=== PATIENT | male | born 1980 | race Hispanic/Latino ===

== ENCOUNTER 2020-02-03 20:56 | Emergency (ER) | payer BC, OTHER, SELFPAY ==
[2020-02-03] MEDS ORDERED: ACETAMINOPHEN EXTRA STRENGTH 500 MG TABLET ONE (21:36)
[2020-02-03] MEDS ORDERED: ONDANSETRON HCL 4 MG/2 ML VIAL ONE (21:36)
[2020-02-03] MEDS ORDERED: FAMOTIDINE/PF 20 MG/2 ML VIAL IV ONE (21:37)
[2020-02-03] MEDS ORDERED: SODIUM CHLORIDE 0.9% 1000ML 1,000 ML IV ONE (21:38)
[2020-02-03 21:39] LABS: EOSINOPHILS % (AUTO) 2.3 % (0.0-8.0); HEMATOCRIT 44.4 % (42-54); LYMPHOCYTES % (AUTO) 21.3 % (21.0-51.0); MEAN CORPUSCULAR HEMOGLOBIN 28.2 pg (27.0-33.0); MEAN CORPUSCULAR HGB CONC 33.3 g/dL (32.0-36.0); MEAN CORPUSCULAR VOLUME 84.6 fL (79-99); NEUTROPHILS % (AUTO) 69.9 % (40.0-77.0); PLATELET COUNT (AUTO) 190 K/uL (130-400); RED BLOOD CELL COUNT(AUTO) 5.25 MIL/uL (4.50-6.20); WHITE BLOOD COUNT (AUTO) 5.5 K/uL (4.8-10.8)
[2020-02-03 21:51] LABS: INR 1.02 (0.85-1.15); PARTIAL THROMBOPLASTIN TIME 30.1 SEC (26.3-35.5)
[2020-02-03 21:55] LABS: CREATININE 1.5 mg/dL (0.5-1.5); POTASSIUM 4.2 mmol/L (3.5-5.1)
[2020-02-03 21:59] LABS: BILIRUBIN,TOTAL 0.5 mg/dL (0.2-1.0)
== END 2020-02-03 23:44 | disposition home or self-care (01) ==
LOC: EDH 20:56
DX: E86.0 Dehydration (principal); R19.7 Diarrhea, unspecified; R05 Cough; R50.9 Fever, unspecified; R10.13 Epigastric pain; Z20.828 Contact with and (suspected) exposure to other viral communicable diseases; E11.9 Type 2 diabetes mellitus without complications; I10 Essential (primary) hypertension; E78.00 Pure hypercholesterolemia, unspecified; Z90.49 Acquired absence of other specified parts of digestive tract
CPT/HCPCS: 36415; 71045; 80053; 82550; 83605; 83690; 84484; 85025; 85610; 85730; 96360; 96361; 99284; J2405; J3490; J7030

== ENCOUNTER 2020-02-04 19:18 | Inpatient (IN) | payer OTHER, SELFPAY ==
[~2020-02-04] VITALS: Ht 172.7 cm; Wt 105.7 kg
[2020-02-04] MEDS ORDERED: ALBUTEROL INHALER 90MCG/INH IH ONE (19:29)
[2020-02-04 20:28] LABS: BASOPHILS % (AUTO) 0.1 % (0.0-5.0); HEMATOCRIT 40.3 % (42-54); LYMPHOCYTES % (AUTO) 12.4 % (21.0-51.0); MEAN CORPUSCULAR HEMOGLOBIN 27.9 pg (27.0-33.0); MEAN CORPUSCULAR VOLUME 84.5 fL (79-99); MONOCYTES % (AUTO) 3.8 % (3.0-13.0); NEUTROPHILS % (AUTO) 83.3 % (40.0-77.0); PLATELET COUNT (AUTO) 161 K/uL (130-400); RED BLOOD CELL COUNT(AUTO) 4.77 MIL/uL (4.50-6.20); RED CELL DISTRIBUTION WIDTH 11.9 % (11.0-15.5); WHITE BLOOD COUNT (AUTO) 7.2 K/uL (4.8-10.8)
[2020-02-04] MEDS ORDERED: ONDANSETRON HCL 4 MG/2 ML VIAL ONE (20:46)
[2020-02-04] MEDS ORDERED: ACETAMINOPHEN EXTRA STRENGTH 500 MG TABLET ONE (20:46)
[2020-02-04 20:47] LABS: CREATININE 1.4 mg/dL (0.5-1.5); POTASSIUM 4.3 mmol/L (3.5-5.1)
[2020-02-04 20:52] LABS: ALBUMIN 3.3 g/dL (3.5-5.0); BILIRUBIN,TOTAL 0.6 mg/dL (0.2-1.0); TOTAL PROTEIN, SERUM 7.9 g/dL (6.0-8.3)
[2020-02-04] MEDS ORDERED: ONDANSETRON HCL 4 MG/2 ML VIAL IV PRN (22:00)
[2020-02-04] MEDS ORDERED: GLUCAGON 1MG KIT 1 MG ML IM PRN (22:00)
[2020-02-04] MEDS ORDERED: DIPHENHYDRAMINE HCL 25 MG CAPSULE PO PRN (22:00)
[2020-02-04] MEDS ORDERED: ERGOCALCIFEROL (VITAMIN D2) 50,000 UNIT CAPSULE PO ONE (22:00)
[2020-02-04] MEDS ORDERED: NITROGLYCERIN 0.4 MG SL TAB SL PRN (22:00)
[2020-02-04] MEDS ORDERED: ALBUTEROL INHALER 90MCG/INH IH PRN (22:00)
[2020-02-04] MEDS ORDERED: DEXTROSE 50%-WATER 50 ML DISP.SYRIN IV PRN (22:00)
[2020-02-04] MEDS ORDERED: ACETAMINOPHEN 325 MG TAB PO PRN ×2 (22:00)
[2020-02-04 22:11] LABS: ABG HCO3 18.4 mmol/L (21.0-28.0); ABG OXYGEN SATURATION 94.4 % (95.0-99.0); ABG PCO2 30 mmHg (35-48)
[2020-02-04 22:23] LABS: HEMOGLOBIN A1C 9.7 % (4.0-6.0)
[2020-02-05 01:39] LABS: CREATINE KINASE, TOTAL 262 U/L (21-232); LACTATE DEHYDROGENASE 219 U/L (81-234); MYOGLOBIN 123 ng/mL (10-92); TROPONIN I < 0.04 ng/mL (0.00-0.06)
[2020-02-05] MEDS ORDERED: CEFTRIAXONE SODIUM 1 GM ONE (06:43)
[2020-02-05] MEDS ORDERED: ACETAMINOPHEN 325 MG TAB ONE (06:59)
[2020-02-05] MEDS ORDERED: MAGNESIUM 2GM PREMIX 50ML 50 ML IV SCH (07:07)
[2020-02-05] MEDS ORDERED: ASCORBIC ACID 500 MG TAB ONE (07:15)
[2020-02-05] MEDS ORDERED: ERGOCALCIFEROL (VITAMIN D2) 50,000 UNIT CAPSULE ONE (07:15)
[2020-02-05] MEDS ORDERED: METHYLPREDNISOLONE SOD SUCC 40MG/ML 1ML ONE ×2 (07:15→21:18)
[2020-02-05] MEDS ORDERED: ZINC SULFATE 220 CAPSULE ONE (07:16)
[2020-02-05] MEDS ORDERED: ENOXAPARIN SODIUM 40 MG/0.4 ML SYRINGE SQ ONE (07:16)
[2020-02-05] MEDS ORDERED: FAMOTIDINE 20MG TAB 20 MG TAB ONE (07:16)
[2020-02-05] MEDS ORDERED: MAGNESIUM 2GM PREMIX 50ML 50 ML IV ONE (07:16)
[2020-02-05] MEDS ORDERED: INSULIN HUMULIN R 100 UNIT/ML 3ML SQ SCH (07:30)
[2020-02-05 08:37] LABS: BASOPHILS % (AUTO) 0.1 % (0.0-5.0); MEAN CORPUSCULAR HEMOGLOBIN 28.3 pg (27.0-33.0); MEAN CORPUSCULAR HGB CONC 33.3 g/dL (32.0-36.0); MONOCYTES % (AUTO) 3.6 % (3.0-13.0); NEUTROPHILS % (AUTO) 85.9 % (40.0-77.0); PLATELET COUNT (AUTO) 161 K/uL (130-400); RED BLOOD CELL COUNT(AUTO) 4.59 MIL/uL (4.50-6.20); RED CELL DISTRIBUTION WIDTH 12.2 % (11.0-15.5); WHITE BLOOD COUNT (AUTO) 8.4 K/uL (4.8-10.8)
[2020-02-05 08:59] LABS: BILIRUBIN,TOTAL 0.5 mg/dL (0.2-1.0); CREATININE 1.2 mg/dL (0.5-1.5); POTASSIUM 4.2 mmol/L (3.5-5.1); TOTAL PROTEIN, SERUM 7.6 g/dL (6.0-8.3)
[2020-02-05] MEDS ORDERED: METHYLPREDNISOLONE SOD SUCC 40MG/ML 1ML IVP SCH (09:00)
[2020-02-05] MEDS ORDERED: ACETAMINOPHEN EXTRA STRENGTH 500 MG TABLET ONE (18:51)
--- NOTE | 2020-02-05 19:03 | NUR ---
CM NOTE PATIENT CONTACTED BY RETA BELL RN FOR INITIAL CM ASSESSMENT- PHONE NUMBERS CONFIRMED AND UPDATED. PATIENT STATES INDEPENDENT, LIVES ALONE PER MD NOTES, PATIENT GOES TO [facility] IF MORE INFORMATION NEEDED AT TIME OF DC, CM TO FOLLOW UP Addendum: 02/05/20 at 1905 by ALEKSEY HENRIQUEZ RN CM Amended: Links added.
[2020-02-05] MEDS ORDERED: FAMOTIDINE/PF 20 MG/2 ML VIAL IV ONE (21:20)
[2020-02-05] MEDS ORDERED: INSULIN HUMULIN R 100 UNIT/ML 3ML ONE ×2 (21:20→22:18)
[2020-02-05] MEDS ORDERED: AZITHROMYCIN 500MG+NS 250ML 250 ML IV ONE (22:23)
[2020-02-06 05:05] LABS: BASOPHILS % (AUTO) 0.1 % (0.0-5.0); HEMATOCRIT 38.4 % (42-54); LYMPHOCYTES % (AUTO) 6.8 % (21.0-51.0); MEAN CORPUSCULAR HEMOGLOBIN 28.4 pg (27.0-33.0); MEAN CORPUSCULAR HGB CONC 33.9 g/dL (32.0-36.0); MONOCYTES % (AUTO) 2.5 % (3.0-13.0); PLATELET COUNT (AUTO) 181 K/uL (130-400); RED BLOOD CELL COUNT(AUTO) 4.57 MIL/uL (4.50-6.20); RED CELL DISTRIBUTION WIDTH 11.9 % (11.0-15.5); WHITE BLOOD COUNT (AUTO) 10.6 K/uL (4.8-10.8)
[2020-02-06 05:47] LABS: ALBUMIN 2.9 g/dL (3.5-5.0); BILIRUBIN,TOTAL 0.4 mg/dL (0.2-1.0); CREATININE 1.4 mg/dL (0.5-1.5); POTASSIUM 4.5 mmol/L (3.5-5.1); TOTAL PROTEIN, SERUM 7.1 g/dL (6.0-8.3)
[2020-02-06] MEDS ORDERED: METHYLPREDNISOLONE SOD SUCC 40MG/ML 1ML ONE ×4 (06:01→22:54)
[2020-02-06] MEDS ORDERED: CEFTRIAXONE SODIUM 1 GM ONE (06:01)
--- NOTE | 2020-02-06 07:30 | NUR ---
ASSUMED CARE OF PATIENT RECEIVED REPORT FROM Angel BRANHAM RN. PT STABLE, AAO X 3, FOLLOWS COMMANDS, NOTED TO GET SOB ON EXERTION WHILE TALKING AND MOVING AROUND IN THE BED. BBS DIMINISHED TO ALL LOBES. O2 @ 15L VIA NON-REBREATHER MASK, O2 SATS 90 %, WITH TACHYPNEA NOTED, ATTEMPTED TO REPOSITION PATIENT AND NOTED TO HAVE A CONTINUOUS COUGH, PT MEDICATED WITH COUGH MEDICATION, INSTRUCTED PATIENT ON RELAXATION TECHNIQUES, PT O2 SATS SLOWLY RECOVERED TO 92%. DENIES ANY PAIN. CALL LAGOS PLACED IN REACH. SIDE RAILS UP X 2. BED IN LOWEST POSITION.
[2020-02-06 08:06] LABS: CRP QUANTITATIVE 304.9 mg/L (0.00-9.0)
[2020-02-06 08:20] VITALS: BP 124/76
[2020-02-06] MEDS: METHYLPREDNISOLONE SOD SUCC 40MG/ML 1ML IVP SCH (09:30)
[2020-02-06] MEDS: ZINC SULFATE 220 CAPSULE PO SCH (09:30)
[2020-02-06] MEDS: ASCORBIC ACID 500 MG TAB PO SCH (09:30)
[2020-02-06] MEDS: FAMOTIDINE 20MG TAB 20 MG TAB PO SCH (09:30)
[2020-02-06] MEDS: ENOXAPARIN SODIUM 40 MG/0.4 ML SYRINGE SQ SCH (09:30)
[2020-02-06] MEDS: AZITHROMYCIN 500MG+NS 250ML 250 ML IV SCH (09:30)
[2020-02-06] MEDS: ALBUTEROL INHALER 90MCG/INH IH SCH ×3 (09:30→18:00)
--- NOTE | 2020-02-06 09:30 | NUR ---
PT CONTINUES WITH SHORTNESS OF BREATH ON EXERTION NOTED TO GET SOB ON EXERTION WHILE TALKING AND MOVING AROUND IN THE BED. O2 @ 15L VIA NON-REBREATHER MASK, O2 SATS 92%, WITH TACHYPNEA NOTED,DENIES ANY PAIN. ASSISTED PATIENT TO LAY PRONE AND NOTED PATIENTS O2 SATS 80, WITH UNCONTROLLABLE COUGH. ASSISTED PATIENT TO LAY ON BACK WITH HOB 45. O2 SATS SLOWLY RECOVERED TO 90. CALL LAGOS PLACED IN REACH. SIDE RAILS UP X 2. BED IN LOWEST POSITION.
[2020-02-06] MEDS ORDERED: ZINC SULFATE 220 CAPSULE ONE (09:47)
[2020-02-06] MEDS ORDERED: FAMOTIDINE 20MG TAB 20 MG TAB ONE (09:47)
[2020-02-06] MEDS ORDERED: ASCORBIC ACID 500 MG TAB ONE (09:47)
[2020-02-06] MEDS ORDERED: ENOXAPARIN SODIUM 40 MG/0.4 ML SYRINGE SQ ONE (09:47)
[2020-02-06] MEDS ORDERED: AZITHROMYCIN 500MG+NS 250ML 250 ML IV ONE ×2 (09:48→22:54)
[2020-02-06] MEDS ORDERED: GUAIFENESIN-DM 200/20 MG 10 ML PO PRN (10:45)
[2020-02-06] MEDS ORDERED: GUAIFENESIN-DM 200/20 MG 10 ML ONE ×4 (10:51→22:54)
[2020-02-06 11:00] VITALS: BP 126/77
--- NOTE | 2020-02-06 11:00 | NUR ---
PT CONTINUES WITH NOTED TACHYPNEA 40/MIN, PT SOB, O2 SATS 88-90% DR. ARRINGTON CALLED BACK. RECEIVED ORDERS.
[2020-02-06 11:06] LABS: ABG BASE EXCESS -6.6 mmol/L (-2.0-3.0); ABG HCO3 17.7 mmol/L (21.0-28.0); ABG OXYGEN SATURATION 90.9 % (95.0-99.0); ABG PCO2 32 mmHg (35-48)
--- NOTE | 2020-02-06 12:00 | NUR ---
HIGH FLOW O2 PLACED BY R/T, ABG'S DRAWN PT RESPIRATIONS 26/MIN. O2 SATS 98 %, PT NOTED TO BE RELAXED AND BREATHING EVEN AND UNLABORED. CALL LAGOS PLACED IN REACH. SIDE RAILS UP X 2. BED IN LOWEST POSITION.
[2020-02-06] MEDS ORDERED: INSULIN HUMULIN R 100 UNIT/ML 3ML ONE ×2 (15:10→18:54)
--- NOTE | 2020-02-06 16:00 | NUR ---
RESPIRATIONS EVEN AND UNLABORED 16/MIN, O2 SATS 97%, PATIENT LAYING PRONE AND TOLERATING WELL. O2 HIGH FLOW AT 40 LITERS. PT TOLERATING WELL.
[2020-02-06 16:20] VITALS: BP 124/63
--- NOTE | 2020-02-06 18:14 | NUR ---
INITIAL SW spoke to patient's father, Marlen Guerrero, [phone]. Another emergency contact is patient's mother, Ernestina Antonio, [phone]. Patient is but presently as per father. Patient presently lives with parents. He has no home services or DME. Patient was working in [place] but is unemployed due to COVID 19. He is able to complete ADL's independently and drives. PCP is Dr. Jaciel Monique at [facility] in [place]. Pharmacy is [facility]. DCP is home. Patient has no insurance or benefits. He is a [place] citizen and has worked. Patient's father educated on [employer] $4 medication program and Daz 3d $5 medication program. Patient is being assisted by [employer] for financial matters. Addendum: 02/06/20 at 1818 by CARMITA MCMAHON SS Amended: Links added.
--- NOTE | 2020-02-06 18:21 | NUR ---
EMERGENCY CONTACTS Marlen Guerrero (father) - [phone] Ernestina Antonio (mother) - [phone]
[2020-02-07] MEDS ORDERED: CEFTRIAXONE SODIUM 1 GM ONE ×2 (04:54→20:59)
[2020-02-07 07:20] LABS: BASOPHILS % (AUTO) 0.1 % (0.0-5.0); HEMATOCRIT 35.5 % (42-54); LYMPHOCYTES % (AUTO) 5.3 % (21.0-51.0); MEAN CORPUSCULAR HEMOGLOBIN 28.5 pg (27.0-33.0); MEAN CORPUSCULAR HGB CONC 33.8 g/dL (32.0-36.0); MEAN CORPUSCULAR VOLUME 84.3 fL (79-99); MONOCYTES % (AUTO) 3.9 % (3.0-13.0); NEUTROPHILS % (AUTO) 89.1 % (40.0-77.0); PLATELET COUNT (AUTO) 244 K/uL (130-400); RED BLOOD CELL COUNT(AUTO) 4.21 MIL/uL (4.50-6.20); RED CELL DISTRIBUTION WIDTH 11.9 % (11.0-15.5); WHITE BLOOD COUNT (AUTO) 12.9 K/uL (4.8-10.8)
[2020-02-07 07:35] LABS: ALBUMIN 2.5 g/dL (3.5-5.0); BILIRUBIN,TOTAL 0.3 mg/dL (0.2-1.0); CREATININE 1.3 mg/dL (0.5-1.5); POTASSIUM 4.6 mmol/L (3.5-5.1); TOTAL PROTEIN, SERUM 7.3 g/dL (6.0-8.3)
[2020-02-07] MEDS ORDERED: METHYLPREDNISOLONE SOD SUCC 40MG/ML 1ML ONE ×2 (08:33→20:58)
[2020-02-07] MEDS ORDERED: ASCORBIC ACID 500 MG TAB ONE (08:33)
[2020-02-07] MEDS ORDERED: ZINC SULFATE 220 CAPSULE ONE (08:34)
[2020-02-07] MEDS ORDERED: AZITHROMYCIN 500MG+NS 250ML 250 ML IV ONE (08:34)
[2020-02-07] MEDS ORDERED: ENOXAPARIN SODIUM 40 MG/0.4 ML SYRINGE SQ ONE (08:34)
[2020-02-07] MEDS ORDERED: FAMOTIDINE 20MG TAB 20 MG TAB ONE ×2 (08:34→20:59)
[2020-02-07] MEDS: ENOXAPARIN SODIUM 40 MG/0.4 ML SYRINGE SQ SCH (09:00)
[2020-02-07] MEDS: ZINC SULFATE 220 CAPSULE PO SCH (09:00)
[2020-02-07] MEDS ORDERED: GUAIFENESIN SUGAR-FREE 100 MG/5 ML UDCUP ONE (09:24)
[2020-02-07 09:39] LABS: CRP QUANTITATIVE 288.9 mg/L (0.00-9.0)
[2020-02-07] MEDS ORDERED: FUROSEMIDE 10 MG/ML 2ML VIAL ONE (17:22)
--- NOTE | 2020-02-07 17:27 | NUR ---
LETTY JOEL FOR [facility] ROUND AND EVALUATED THE PT. JAMAR EDUCATED AND RECOMMENDED TREATMENT WITH PLASMA AND REMDESIVIR NEW ANTIVIRAL MED, PT VERBALIZED UNDERSTAND AND AGREE.
[2020-02-07] MEDS ORDERED: GUAIFENESIN-DM 200/20 MG 10 ML ONE (20:58)
[2020-02-08] MEDS ORDERED: FUROSEMIDE 10 MG/ML 2ML VIAL ONE ×2 (05:14→13:44)
[2020-02-08 07:48] LABS: CREATININE 1.2 mg/dL (0.5-1.5); MAGNESIUM 2.6 mg/dL (1.80-2.40); POTASSIUM 4.2 mmol/L (3.5-5.1)
[2020-02-08] MEDS: ZINC SULFATE 220 CAPSULE PO SCH (09:00)
[2020-02-08] MEDS: ENOXAPARIN SODIUM 40 MG/0.4 ML SYRINGE SQ SCH (09:00)
[2020-02-08] MEDS: ASCORBIC ACID 500 MG TAB PO SCH (09:00)
[2020-02-08] MEDS: AZITHROMYCIN 500MG+NS 250ML 250 ML IV SCH (09:00)
[2020-02-08] MEDS ORDERED: ALBUTEROL INHALER 90MCG/INH IH ONE (09:13)
[2020-02-08] MEDS ORDERED: ENOXAPARIN SODIUM 40 MG/0.4 ML SYRINGE SQ ONE (09:14)
[2020-02-08] MEDS ORDERED: ZINC SULFATE 220 CAPSULE ONE (09:16)
[2020-02-08] MEDS ORDERED: ASCORBIC ACID 500 MG TAB ONE (09:17)
[2020-02-08 10:06] LABS: BASOPHILS % (AUTO) 0.2 % (0.0-5.0); HEMATOCRIT 37.8 % (42-54); LYMPHOCYTES % (AUTO) 4.8 % (21.0-51.0); MEAN CORPUSCULAR HGB CONC 32.5 g/dL (32.0-36.0); MEAN CORPUSCULAR VOLUME 85.9 fL (79-99); MONOCYTES % (AUTO) 3.8 % (3.0-13.0); NEUTROPHILS % (AUTO) 90.1 % (40.0-77.0); PLATELET COUNT (AUTO) 296 K/uL (130-400); RED CELL DISTRIBUTION WIDTH 12.2 % (11.0-15.5); WHITE BLOOD COUNT (AUTO) 12.3 K/uL (4.8-10.8)
[2020-02-08] MEDS ORDERED: FAMOTIDINE 20MG TAB 20 MG TAB ONE ×2 (10:20→22:08)
[2020-02-08] MEDS ORDERED: AZITHROMYCIN 500MG+NS 250ML 250 ML IV ONE (10:20)
[2020-02-08] MEDS ORDERED: INSULIN HUMULIN R 100 UNIT/ML 3ML ONE ×3 (13:17→22:09)
[2020-02-08] MEDS ORDERED: METHYLPREDNISOLONE SOD SUCC 40MG/ML 1ML ONE ×2 (13:44→22:07)
[2020-02-08] MEDS ORDERED: HYDRALAZINE HCL 20 MG/ML VIAL IV PRN (14:30)
[2020-02-08] MEDS ORDERED: IOHEXOL-350 75 ML VIAL IV ONE (14:55)
[2020-02-08] MEDS: FUROSEMIDE 10 MG/ML 2ML VIAL IV SCH (16:30)
[2020-02-08] MEDS: INSULIN HUMULIN R 100 UNIT/ML 3ML SQ SCH ×2 (16:30→21:00)
[2020-02-08] MEDS: INSULIN GLARGINE 100 UNITS/ML 10 ML VIAL SQ SCH (21:00)
[2020-02-08] MEDS: METHYLPREDNISOLONE SOD SUCC 40MG/ML 1ML IVP SCH (21:00)
[2020-02-08] MEDS: FAMOTIDINE 20MG TAB 20 MG TAB PO SCH (21:00)
[2020-02-08] MEDS: CEFTRIAXONE SODIUM 1 GM IV SCH (22:00)
[2020-02-08] MEDS: ALBUTEROL INHALER 90MCG/INH IH SCH (22:00)
[2020-02-08] MEDS ORDERED: GUAIFENESIN-DM 200/20 MG 10 ML ONE (22:07)
[2020-02-08] MEDS ORDERED: CEFTRIAXONE SODIUM 1 GM ONE (22:08)
[2020-02-08] MEDS ORDERED: SODIUM CHLORIDE 0.9% 50 ML IV ONE (22:12)
--- NOTE | 2020-02-08 23:50 | NUR ---
ER Arrived from Er,pt on 100% 02 via nonrebreather mask,and high flow 02 70liters at 100%.. Addendum: 02/08/20 at 2354 by KINGS WELLER RN RN Amended: Links added. Addendum: 02/09/20 at 0025 by KINGS WELLER RN RN Pt appears sob during transport.
[2020-02-08 23:55] VITALS: BP 149/98
--- NOTE | 2020-02-09 01:39 | NUR ---
PRONE Pt lying prone on his own,respirations even and unlabored.ailyn well.
[2020-02-09] MEDS: ALBUTEROL INHALER 90MCG/INH IH SCH ×6 (02:24→23:25)
[2020-02-09] MEDS: FUROSEMIDE 10 MG/ML 2ML VIAL IV SCH ×2 (03:07→14:24)
[2020-02-09 03:47] VITALS: BP 125/65
[2020-02-09 05:01] LABS: BASOPHILS % (AUTO) 0.3 % (0.0-5.0); HEMATOCRIT 39.9 % (42-54); MEAN CORPUSCULAR HEMOGLOBIN 27.8 pg (27.0-33.0); MEAN CORPUSCULAR HGB CONC 32.6 g/dL (32.0-36.0); MEAN CORPUSCULAR VOLUME 85.4 fL (79-99); MONOCYTES % (AUTO) 4.4 % (3.0-13.0); NEUTROPHILS % (AUTO) 86.3 % (40.0-77.0); PLATELET COUNT (AUTO) 328 K/uL (130-400); RED BLOOD CELL COUNT(AUTO) 4.67 MIL/uL (4.50-6.20); RED CELL DISTRIBUTION WIDTH 12.2 % (11.0-15.5); WHITE BLOOD COUNT (AUTO) 10.5 K/uL (4.8-10.8)
[2020-02-09 05:19] LABS: CREATININE 1.2 mg/dL (0.5-1.5); POTASSIUM 4.1 mmol/L (3.5-5.1)
[2020-02-09 05:29] LABS: CRP QUANTITATIVE 193.2 mg/L (0.00-9.0)
[2020-02-09] MEDS: INSULIN HUMULIN R 100 UNIT/ML 3ML SQ SCH ×4 (06:34→22:22)
[2020-02-09 08:39] VITALS: BP 125/68
[2020-02-09] MEDS: AZITHROMYCIN 500MG+NS 250ML 250 ML IV SCH (09:39)
[2020-02-09] MEDS: METHYLPREDNISOLONE SOD SUCC 40MG/ML 1ML IVP SCH ×2 (09:39→20:48)
[2020-02-09] MEDS: ZINC SULFATE 220 CAPSULE PO SCH (09:40)
[2020-02-09] MEDS: ASCORBIC ACID 500 MG TAB PO SCH (09:40)
[2020-02-09] MEDS: FAMOTIDINE 20MG TAB 20 MG TAB PO SCH ×2 (09:40→20:49)
[2020-02-09] MEDS: ENOXAPARIN SODIUM 40 MG/0.4 ML SYRINGE SQ SCH (09:41)
[2020-02-09 11:32] VITALS: BP 145/76
--- NOTE | 2020-02-09 16:20 | NUR ---
DR. Hawthorne AWARE OF PT 02 SATS 90% ON 100% HIGH FLOW CALL PULMO IF PT DESATS BELOW 89%.
[2020-02-09 17:07] VITALS: BP 135/75
[2020-02-09 19:30] VITALS: BP 135/75
--- NOTE | 2020-02-09 19:30 | NUR ---
RECEIVED PATIENT IN BED, PRONE POSITION. PT IS AAOX4, NO ACUTE DISTRESS NOTED. PATIENT WITH HIGH FLOW AND NRB MASK WITH SATURATION AT 92%. POC DISCUSSED WITH PATIENT. INSTRUCTED TO CALL FOR ASSISTANCE IF NEEDED. PATIENT VOICED UNDERSTANDING. TELE WITH SINUS 85.
[2020-02-09] MEDS: CEFTRIAXONE SODIUM 1 GM IV SCH (20:49)
[2020-02-09] MEDS: INSULIN GLARGINE 100 UNITS/ML 10 ML VIAL SQ SCH (22:22)
[2020-02-09 23:54] VITALS: BP 135/86
[2020-02-10] MEDS: FUROSEMIDE 10 MG/ML 2ML VIAL IV SCH ×2 (01:57→17:31)
[2020-02-10 04:00] VITALS: BP 111/58
[2020-02-10] MEDS: ALBUTEROL INHALER 90MCG/INH IH SCH ×6 (04:03→21:32)
[2020-02-10] MEDS: INSULIN HUMULIN R 100 UNIT/ML 3ML SQ SCH ×4 (07:03→21:19)
[2020-02-10 07:51] LABS: BASOPHILS % (AUTO) 0.2 % (0.0-5.0); HEMATOCRIT 39.1 % (42-54); LYMPHOCYTES % (AUTO) 12.2 % (21.0-51.0); MEAN CORPUSCULAR HEMOGLOBIN 27.9 pg (27.0-33.0); MEAN CORPUSCULAR HGB CONC 32.5 g/dL (32.0-36.0); MEAN CORPUSCULAR VOLUME 85.7 fL (79-99); MONOCYTES % (AUTO) 4.3 % (3.0-13.0); NEUTROPHILS % (AUTO) 80.3 % (40.0-77.0); PLATELET COUNT (AUTO) 372 K/uL (130-400); RED BLOOD CELL COUNT(AUTO) 4.56 MIL/uL (4.50-6.20); RED CELL DISTRIBUTION WIDTH 11.9 % (11.0-15.5); WHITE BLOOD COUNT (AUTO) 8.7 K/uL (4.8-10.8)
[2020-02-10 08:12] LABS: ALBUMIN 2.2 g/dL (3.5-5.0); BILIRUBIN,TOTAL 0.3 mg/dL (0.2-1.0); CREATININE 1.1 mg/dL (0.5-1.5); CRP QUANTITATIVE 88.7 mg/L (0.00-9.0); POTASSIUM 3.6 mmol/L (3.5-5.1); TOTAL PROTEIN, SERUM 7.2 g/dL (6.0-8.3)
[2020-02-10 09:10] VITALS: BP 130/72
[2020-02-10] MEDS: AZITHROMYCIN 500MG+NS 250ML 250 ML IV SCH (09:26)
[2020-02-10] MEDS: ASCORBIC ACID 500 MG TAB PO SCH (09:27)
[2020-02-10] MEDS: METHYLPREDNISOLONE SOD SUCC 40MG/ML 1ML IVP SCH ×2 (09:27→21:13)
[2020-02-10] MEDS: ZINC SULFATE 220 CAPSULE PO SCH (09:27)
[2020-02-10] MEDS: FAMOTIDINE 20MG TAB 20 MG TAB PO SCH ×2 (09:27→21:15)
[2020-02-10] MEDS: ENOXAPARIN SODIUM 40 MG/0.4 ML SYRINGE SQ SCH (09:29)
[2020-02-10 12:03] VITALS: BP 131/74
--- NOTE | 2020-02-10 13:20 | NUR ---
PATIENT GET SOB Addendum: 02/10/20 at 1331 by KRUNAL ANNA RN RN Amended: Links added.
[2020-02-10 16:42] VITALS: BP 126/73
[2020-02-10 20:00] VITALS: BP 116/59
[2020-02-10] MEDS: CEFTRIAXONE SODIUM 1 GM IV SCH (21:14)
[2020-02-10] MEDS: INSULIN GLARGINE 100 UNITS/ML 10 ML VIAL SQ SCH (21:31)
[2020-02-11] VITALS (7 sets, daily range): BP systolic 102–154; BP diastolic 65–89
[2020-02-11] MEDS: ALBUTEROL INHALER 90MCG/INH IH SCH ×6 (01:56→18:00)
[2020-02-11] MEDS: FUROSEMIDE 10 MG/ML 2ML VIAL IV SCH ×2 (04:47→17:22)
[2020-02-11] MEDS: INSULIN HUMULIN R 100 UNIT/ML 3ML SQ SCH ×4 (06:10→22:17)
[2020-02-11 06:45] LABS: BASOPHILS % (AUTO) 0.2 % (0.0-5.0); EOSINOPHILS % (AUTO) 0.1 % (0.0-8.0); HEMATOCRIT 39.3 % (42-54); LYMPHOCYTES % (AUTO) 9.5 % (21.0-51.0); MEAN CORPUSCULAR HEMOGLOBIN 28.2 pg (27.0-33.0); MEAN CORPUSCULAR HGB CONC 33.3 g/dL (32.0-36.0); MEAN CORPUSCULAR VOLUME 84.7 fL (79-99); MONOCYTES % (AUTO) 3.8 % (3.0-13.0); NEUTROPHILS % (AUTO) 83.8 % (40.0-77.0); PLATELET COUNT (AUTO) 380 K/uL (130-400); RED BLOOD CELL COUNT(AUTO) 4.64 MIL/uL (4.50-6.20); RED CELL DISTRIBUTION WIDTH 11.8 % (11.0-15.5); WHITE BLOOD COUNT (AUTO) 8.1 K/uL (4.8-10.8)
[2020-02-11 07:29] LABS: ALBUMIN 2.2 g/dL (3.5-5.0); BILIRUBIN,TOTAL 0.4 mg/dL (0.2-1.0); CRP QUANTITATIVE 136.7 mg/L (0.00-9.0); POTASSIUM 3.8 mmol/L (3.5-5.1); TOTAL PROTEIN, SERUM 7.4 g/dL (6.0-8.3)
[2020-02-11] MEDS ORDERED: PHARMACY COMMUNICATION MISC SCH (08:45)
[2020-02-11] MEDS ORDERED: IVERMECTIN 3 MG TAB PO SCH ×2 (08:45→09:30)
[2020-02-11] MEDS: METHYLPREDNISOLONE SOD SUCC 40MG/ML 1ML IVP SCH ×4 (09:00→22:13)
[2020-02-11] MEDS ORDERED: ENOXAPARIN SODIUM 0.5 MG/KG EACH SQ SCH (09:00)
[2020-02-11] MEDS: FAMOTIDINE 20MG TAB 20 MG TAB PO SCH ×2 (09:39→22:13)
[2020-02-11] MEDS: AZITHROMYCIN 500MG+NS 250ML 250 ML IV SCH (09:39)
[2020-02-11] MEDS: ASCORBIC ACID 500 MG TAB PO SCH (09:40)
[2020-02-11] MEDS: ENOXAPARIN SODIUM 60 MG/0.6 ML SQ SCH ×2 (09:40→22:16)
[2020-02-11] MEDS: ZINC SULFATE 220 CAPSULE PO SCH (09:40)
[2020-02-11] MEDS ORDERED: PHARMACY COMMUNICATION**REMDESIVIR ORDER MISC SCH (15:30)
--- NOTE | 2020-02-11 16:09 | NUR ---
Nutrition Note: RD screen LOS x7 days. Pt admitted with severe sepsis, pneumonia, +Covid. Pt on a GHH/75 gm diet eating 25-75 % of meals and had been able to eat well. Per nurse, patient status has changed and is on Bipap unable to remove mask to eat because he desaturates. Day one of unable to eat. Pt with uncontrolled DM A1C 9.7. LBM 02/09 Monitor patient intake and hydration status. Add no concentrated sweets to current diet. If patient is unable to eat via po, consider enteral nutrition for energy intake and hydration. Initiate TF of vital AF at 10ml/hr and consult RD for detailed recommendations. Add Vit D 1000 IU/day. F/U 1-3 days. Addendum: 02/11/20 at [address] Amended: Links added.
[2020-02-11] MEDS ORDERED: SODIUM CHLORIDE 0.9% 250 ML IV ONE (16:12)
--- NOTE | 2020-02-11 16:40 | NUR ---
REPORT RECEIVED FROM NURSE KELLI AND PT NOW TO ROOM 407. RESP THERAPY HERE AND PLACED PT. ON BIPAP+PENDING TO RECEIVE 1 UNIT OF CONVALESCENT PLASMA. AAO, WITH SATS AT100&
--- NOTE | 2020-02-11 18:01 | NUR ---
CONSENT SIGNED FOR TRANSFUSION OF 1 UNIT OF CONVALESCENT.
[2020-02-11] MEDS ORDERED: REMDESIVIR (EUA) 520 200 MG in SODIUM CHLORIDE 0.9% 250 ML IV SCH (20:00)
[2020-02-11] MEDS: CEFTRIAXONE SODIUM 1 GM IV SCH (22:13)
[2020-02-11] MEDS: INSULIN GLARGINE 100 UNITS/ML 10 ML VIAL SQ SCH (22:18)
--- NOTE | 2020-02-11 22:20 | NUR ---
PLASMA STILL HANGING, NOT COMPLETED. TRANSFUSION VITAL CHECK LIST ON BEDSIDE TABLE WITH ONLY PRE TRANSFUSION VITALS WRITTEN DOWN. BLOOD BANK CALLED BY [facility], WAS NOTIFIED TO SEND PLASMA BACK TO BLOOD BANK AND REQUEST A NEW BAG OF PLASMA. D/T NOT BEING COMPLETED WITHIN 4 HOURS. TIME ON SHEET WAS 1810.
[2020-02-12] VITALS (7 sets, daily range): BP systolic 107–141; BP diastolic 74–89
[2020-02-12] MEDS: ALBUTEROL INHALER 90MCG/INH IH SCH ×6 (02:00→22:00)
[2020-02-12] MEDS: FUROSEMIDE 10 MG/ML 2ML VIAL IV SCH ×2 (04:56→16:40)
--- NOTE | 2020-02-12 04:58 | NUR ---
COMPLETED PLASMA (1 BAG) NO ADVERSE REACTIONS. PT LAYING ON LEFT SIDE, DENIES PAIN OR DISTRESS. VITALS BP 121/84 HR 60 R 23 TEMP 97.5
[2020-02-12] MEDS: INSULIN HUMULIN R 100 UNIT/ML 3ML SQ SCH ×4 (06:13→22:15)
[2020-02-12 06:17] LABS: BASOPHILS % (AUTO) 0.1 % (0.0-5.0); EOSINOPHILS % (AUTO) 0.2 % (0.0-8.0); LYMPHOCYTES % (AUTO) 9.8 % (21.0-51.0); MEAN CORPUSCULAR HEMOGLOBIN 27.6 pg (27.0-33.0); MEAN CORPUSCULAR HGB CONC 32.8 g/dL (32.0-36.0); MEAN CORPUSCULAR VOLUME 84.2 fL (79-99); MONOCYTES % (AUTO) 4.5 % (3.0-13.0); PLATELET COUNT (AUTO) 394 K/uL (130-400); RED BLOOD CELL COUNT(AUTO) 4.75 MIL/uL (4.50-6.20); RED CELL DISTRIBUTION WIDTH 11.7 % (11.0-15.5); WHITE BLOOD COUNT (AUTO) 9.7 K/uL (4.8-10.8)
[2020-02-12 06:48] LABS: ALBUMIN 2.4 g/dL (3.5-5.0); BILIRUBIN,TOTAL 0.4 mg/dL (0.2-1.0); POTASSIUM 3.9 mmol/L (3.5-5.1); TOTAL PROTEIN, SERUM 7.7 g/dL (6.0-8.3)
[2020-02-12 07:31] LABS: CRP QUANTITATIVE 191.9 mg/L (0.00-9.0)
[2020-02-12] MEDS: ASCORBIC ACID 500 MG TAB PO SCH (09:25)
[2020-02-12] MEDS: ZINC SULFATE 220 CAPSULE PO SCH (09:25)
[2020-02-12] MEDS: AZITHROMYCIN 500MG+NS 250ML 250 ML IV SCH (09:25)
[2020-02-12] MEDS: FAMOTIDINE 20MG TAB 20 MG TAB PO SCH ×2 (09:25→22:06)
[2020-02-12] MEDS: METHYLPREDNISOLONE SOD SUCC 40MG/ML 1ML IVP SCH ×3 (09:25→22:14)
[2020-02-12] MEDS: ENOXAPARIN SODIUM 60 MG/0.6 ML SQ SCH ×2 (09:26→22:09)
[2020-02-12] MEDS ORDERED: COMPOUND IV REFRIGERATED 1 EACH IVSOLN MISC PRN (12:15)
--- NOTE | 2020-02-12 18:09 | NUR ---
Critical results given to Dr. Gianluca Musa. no new orders received. pt laying in bed on bipap. no acute distress noted.
[2020-02-12] MEDS: CEFTRIAXONE SODIUM 1 GM IV SCH (22:05)
[2020-02-12] MEDS: ACETYLCYSTEINE 600 MG CAPSULE PO SCH (22:06)
[2020-02-12] MEDS: INSULIN GLARGINE 100 UNITS/ML 10 ML VIAL SQ SCH (22:07)
[2020-02-12] MEDS: REMDESIVIR (EUA) 520 100 MG in SODIUM CHLORIDE 0.9% 250 ML IV SCH (22:14)
[2020-02-13] MEDS: ALBUTEROL INHALER 90MCG/INH IH SCH ×6 (02:00→22:00)
[2020-02-13 03:59] VITALS: BP 150/84
[2020-02-13 04:44] LABS: BASOPHILS % (AUTO) 0.1 % (0.0-5.0); EOSINOPHILS % (AUTO) 0.1 % (0.0-8.0); HEMATOCRIT 39.7 % (42-54); LYMPHOCYTES % (AUTO) 7.6 % (21.0-51.0); MEAN CORPUSCULAR HEMOGLOBIN 28.1 pg (27.0-33.0); MEAN CORPUSCULAR HGB CONC 32.7 g/dL (32.0-36.0); MEAN CORPUSCULAR VOLUME 85.9 fL (79-99); NEUTROPHILS % (AUTO) 85.5 % (40.0-77.0); PLATELET COUNT (AUTO) 394 K/uL (130-400); RED BLOOD CELL COUNT(AUTO) 4.62 MIL/uL (4.50-6.20); RED CELL DISTRIBUTION WIDTH 11.9 % (11.0-15.5); WHITE BLOOD COUNT (AUTO) 11.2 K/uL (4.8-10.8)
[2020-02-13 04:46] LABS: ALANINE AMINOTRANSFERASE 33 U/L (12-78); ALBUMIN 2.2 g/dL (3.5-5.0); ASPARTATE AMINOTRANSFERASE 15 U/L (10-37); BILIRUBIN,TOTAL 0.2 mg/dL (0.2-1.0); CARBON DIOXIDE 31 mmol/L (21-32); CHLORIDE 99 mmol/L (101-111); GLOMERULAR FILTR. RATE CALC 88 mL/min (>60); GLUCOSE,RANDOM 200 mg/dL (70-105); LACTATE DEHYDROGENASE 265 U/L (81-234); POTASSIUM 3.9 mmol/L (3.5-5.1); SODIUM SERUM 136 mmol/L (136-145); TOTAL PROTEIN, SERUM 7.3 g/dL (6.0-8.3); UREA NITROGEN, BLOOD 33 mg/dL (7-18)
[2020-02-13] MEDS: FUROSEMIDE 10 MG/ML 2ML VIAL IV SCH ×2 (06:13→16:28)
[2020-02-13] MEDS: INSULIN HUMULIN R 100 UNIT/ML 3ML SQ SCH ×4 (06:14→20:39)
[2020-02-13 07:45] VITALS: BP 116/71
[2020-02-13] MEDS: ZINC SULFATE 220 CAPSULE PO SCH (08:52)
[2020-02-13] MEDS: ACETYLCYSTEINE 600 MG CAPSULE PO SCH ×2 (08:52→20:21)
[2020-02-13] MEDS: AZITHROMYCIN 500MG+NS 250ML 250 ML IV SCH (08:52)
[2020-02-13] MEDS: METHYLPREDNISOLONE SOD SUCC 40MG/ML 1ML IVP SCH ×3 (08:52→20:21)
[2020-02-13] MEDS: ASCORBIC ACID 500 MG TAB PO SCH (08:52)
[2020-02-13] MEDS: FAMOTIDINE 20MG TAB 20 MG TAB PO SCH ×2 (08:52→20:21)
[2020-02-13] MEDS: ENOXAPARIN SODIUM 60 MG/0.6 ML SQ SCH ×2 (08:54→20:40)
[2020-02-13 11:35] VITALS: BP 171/87
[2020-02-13 16:08] VITALS: BP 113/74
--- NOTE | 2020-02-13 16:15 | NUR ---
FiO2 decreased to .90 Addendum: 02/13/20 at 1851 by LYNDON PARKER RT Amended: Links added.
[2020-02-13] MEDS: REMDESIVIR (EUA) 520 100 MG in SODIUM CHLORIDE 0.9% 250 ML IV SCH (20:21)
[2020-02-13] MEDS: CEFTRIAXONE SODIUM 1 GM IV SCH (20:21)
[2020-02-13 20:32] VITALS: BP 110/59
[2020-02-13] MEDS: INSULIN GLARGINE 100 UNITS/ML 10 ML VIAL SQ SCH (20:39)
[2020-02-13 21:15] LABS: INR 1.12 (0.85-1.15)
[2020-02-13 23:46] VITALS: BP 137/65
[2020-02-14 03:48] VITALS: BP 106/76
[2020-02-14] MEDS: ALBUTEROL INHALER 90MCG/INH IH SCH ×6 (03:56→20:06)
[2020-02-14 05:20] LABS: BASOPHILS % (AUTO) 0.1 % (0.0-5.0); EOSINOPHILS % (AUTO) 0.2 % (0.0-8.0); HEMATOCRIT 40.3 % (42-54); LYMPHOCYTES % (AUTO) 6.5 % (21.0-51.0); MEAN CORPUSCULAR HEMOGLOBIN 27.8 pg (27.0-33.0); MEAN CORPUSCULAR HGB CONC 32.3 g/dL (32.0-36.0); MEAN CORPUSCULAR VOLUME 86.3 fL (79-99); MONOCYTES % (AUTO) 5.1 % (3.0-13.0); NEUTROPHILS % (AUTO) 86.7 % (40.0-77.0); PLATELET COUNT (AUTO) 375 K/uL (130-400); RED BLOOD CELL COUNT(AUTO) 4.67 MIL/uL (4.50-6.20); RED CELL DISTRIBUTION WIDTH 11.9 % (11.0-15.5); WHITE BLOOD COUNT (AUTO) 11.5 K/uL (4.8-10.8)
[2020-02-14 05:40] LABS: ALANINE AMINOTRANSFERASE 25 U/L (12-78); ALBUMIN 2.2 g/dL (3.5-5.0); ASPARTATE AMINOTRANSFERASE 12 U/L (10-37); BILIRUBIN,TOTAL 0.3 mg/dL (0.2-1.0); CARBON DIOXIDE 30 mmol/L (21-32); CHLORIDE 100 mmol/L (101-111); CREATININE 0.9 mg/dL (0.5-1.5); GLOMERULAR FILTR. RATE CALC 99 mL/min (>60); GLUCOSE,RANDOM 177 mg/dL (70-105); LACTATE DEHYDROGENASE 291 U/L (81-234); SODIUM SERUM 137 mmol/L (136-145); UREA NITROGEN, BLOOD 31 mg/dL (7-18)
[2020-02-14] MEDS: FUROSEMIDE 10 MG/ML 2ML VIAL IV SCH ×2 (06:31→17:12)
[2020-02-14] MEDS: INSULIN HUMULIN R 100 UNIT/ML 3ML SQ SCH ×5 (06:32→20:06)
[2020-02-14 08:15] VITALS: BP 113/68
[2020-02-14] MEDS: ACETYLCYSTEINE 600 MG CAPSULE PO SCH ×2 (08:22→19:39)
[2020-02-14] MEDS: FAMOTIDINE 20MG TAB 20 MG TAB PO SCH ×2 (08:22→19:39)
[2020-02-14] MEDS: ZINC SULFATE 220 CAPSULE PO SCH (08:22)
[2020-02-14] MEDS: ASCORBIC ACID 500 MG TAB PO SCH (08:22)
[2020-02-14] MEDS: AZITHROMYCIN 500MG+NS 250ML 250 ML IV SCH (08:23)
[2020-02-14] MEDS: METHYLPREDNISOLONE SOD SUCC 40MG/ML 1ML IVP SCH ×3 (08:23→19:38)
[2020-02-14] MEDS: ENOXAPARIN SODIUM 60 MG/0.6 ML SQ SCH ×2 (08:24→19:39)
[2020-02-14 12:10] VITALS: BP 121/69
[2020-02-14 16:34] VITALS: BP 110/60
[2020-02-14] MEDS: REMDESIVIR (EUA) 520 100 MG in SODIUM CHLORIDE 0.9% 250 ML IV SCH (19:39)
[2020-02-14] MEDS: CEFTRIAXONE SODIUM 1 GM IV SCH (19:40)
[2020-02-14] MEDS: INSULIN GLARGINE 100 UNITS/ML 10 ML VIAL SQ SCH (20:05)
[2020-02-14 20:13] VITALS: BP 129/80
[2020-02-14 23:01] VITALS: BP 106/63
[2020-02-15] MEDS: ALBUTEROL INHALER 90MCG/INH IH SCH ×6 (01:17→22:36)
[2020-02-15 03:54] VITALS: BP 120/68
[2020-02-15 05:01] LABS: BASOPHILS % (AUTO) 0.2 % (0.0-5.0); EOSINOPHILS % (AUTO) 0.4 % (0.0-8.0); LYMPHOCYTES % (AUTO) 8.2 % (21.0-51.0); MEAN CORPUSCULAR HEMOGLOBIN 28.3 pg (27.0-33.0); MEAN CORPUSCULAR VOLUME 85.8 fL (79-99); MONOCYTES % (AUTO) 4.7 % (3.0-13.0); NEUTROPHILS % (AUTO) 85.1 % (40.0-77.0); PLATELET COUNT (AUTO) 385 K/uL (130-400); RED BLOOD CELL COUNT(AUTO) 4.66 MIL/uL (4.50-6.20); RED CELL DISTRIBUTION WIDTH 11.9 % (11.0-15.5)
[2020-02-15] MEDS: FUROSEMIDE 10 MG/ML 2ML VIAL IV SCH ×3 (05:04→22:40)
[2020-02-15] MEDS: INSULIN HUMULIN R 100 UNIT/ML 3ML SQ SCH ×7 (05:06→20:50)
[2020-02-15 05:38] LABS: ALANINE AMINOTRANSFERASE 35 U/L (12-78); ALBUMIN 2.2 g/dL (3.5-5.0); ASPARTATE AMINOTRANSFERASE 18 U/L (10-37); BILIRUBIN,TOTAL 0.3 mg/dL (0.2-1.0); CARBON DIOXIDE 32 mmol/L (21-32); CHLORIDE 100 mmol/L (101-111); CREATININE 0.9 mg/dL (0.5-1.5); GLOMERULAR FILTR. RATE CALC 99 mL/min (>60); GLUCOSE,RANDOM 185 mg/dL (70-105); POTASSIUM 3.9 mmol/L (3.5-5.1); SODIUM SERUM 137 mmol/L (136-145); TOTAL PROTEIN, SERUM 6.9 g/dL (6.0-8.3); UREA NITROGEN, BLOOD 32 mg/dL (7-18)
[2020-02-15 05:54] LABS: LACTATE DEHYDROGENASE 281 U/L (81-234)
[2020-02-15 07:50] VITALS: BP 93/48
[2020-02-15] MEDS: ZINC SULFATE 220 CAPSULE PO SCH (08:35)
[2020-02-15] MEDS: METHYLPREDNISOLONE SOD SUCC 40MG/ML 1ML IVP SCH ×3 (08:35→20:48)
[2020-02-15] MEDS: ACETYLCYSTEINE 600 MG CAPSULE PO SCH ×2 (08:35→20:48)
[2020-02-15] MEDS: ASCORBIC ACID 500 MG TAB PO SCH (08:35)
[2020-02-15] MEDS: FAMOTIDINE 20MG TAB 20 MG TAB PO SCH ×2 (08:35→20:48)
[2020-02-15] MEDS: ENOXAPARIN SODIUM 60 MG/0.6 ML SQ SCH ×2 (08:36→20:52)
[2020-02-15 09:10] LABS: ABG BASE EXCESS 2.5 mmol/L (-2.0-3.0); ABG HCO3 27.1 mmol/L (21.0-28.0); ABG OXYGEN SATURATION 93.6 % (95.0-99.0); ABG PCO2 42 mmHg (35-48)
[2020-02-15 11:59] VITALS: BP 105/59
[2020-02-15 15:42] VITALS: BP 110/60
[2020-02-15 20:47] VITALS: BP 113/71
[2020-02-15] MEDS: REMDESIVIR (EUA) 520 100 MG in SODIUM CHLORIDE 0.9% 250 ML IV SCH (20:47)
[2020-02-15] MEDS: INSULIN GLARGINE 100 UNITS/ML 10 ML VIAL SQ SCH (20:51)
[2020-02-16] VITALS (7 sets, daily range): BP systolic 96–141; BP diastolic 52–77
[2020-02-16] MEDS: ALBUTEROL INHALER 90MCG/INH IH SCH ×5 (02:29→17:05)
[2020-02-16 03:51] LABS: ABG BASE EXCESS 2.9 mmol/L (-2.0-3.0); ABG HCO3 27.3 mmol/L (21.0-28.0); ABG OXYGEN SATURATION 97.2 % (95.0-99.0); ABG PCO2 41 mmHg (35-48)
[2020-02-16] MEDS: FUROSEMIDE 10 MG/ML 2ML VIAL IV SCH ×4 (04:47→21:50)
--- NOTE | 2020-02-16 04:57 | NUR ---
Bipap settings Pt is on Bipap settings of 12-6 at 100%. Pt is lying in bed without any s/sx of distress noted at this time. Denies any pain or concerns at this time.
[2020-02-16] MEDS: INSULIN HUMULIN R 100 UNIT/ML 3ML SQ SCH ×7 (06:27→22:34)
[2020-02-16] MEDS: METHYLPREDNISOLONE SOD SUCC 40MG/ML 1ML IVP SCH ×3 (08:30→21:49)
[2020-02-16] MEDS: ZINC SULFATE 220 CAPSULE PO SCH (08:30)
[2020-02-16] MEDS: ENOXAPARIN SODIUM 60 MG/0.6 ML SQ SCH ×2 (08:30→21:52)
[2020-02-16] MEDS: FAMOTIDINE 20MG TAB 20 MG TAB PO SCH ×2 (08:30→21:50)
[2020-02-16] MEDS: ASCORBIC ACID 500 MG TAB PO SCH (08:30)
[2020-02-16] MEDS: ACETYLCYSTEINE 600 MG CAPSULE PO SCH ×2 (08:30→21:50)
[2020-02-16] MEDS: INSULIN GLARGINE 100 UNITS/ML 10 ML VIAL SQ SCH (22:36)
[2020-02-17] MEDS: ALBUTEROL INHALER 90MCG/INH IH SCH ×6 (02:00→21:26)
[2020-02-17 04:42] VITALS: BP 116/69
[2020-02-17] MEDS: FUROSEMIDE 10 MG/ML 2ML VIAL IV SCH ×4 (04:52→23:53)
[2020-02-17] MEDS: INSULIN HUMULIN R 100 UNIT/ML 3ML SQ SCH ×7 (06:12→21:17)
[2020-02-17 06:30] LABS: BASOPHILS % (AUTO) 0.1 % (0.0-5.0); EOSINOPHILS % (AUTO) 0.5 % (0.0-8.0); LYMPHOCYTES % (AUTO) 5.5 % (21.0-51.0); MEAN CORPUSCULAR HEMOGLOBIN 27.5 pg (27.0-33.0); MEAN CORPUSCULAR HGB CONC 32.9 g/dL (32.0-36.0); MEAN CORPUSCULAR VOLUME 83.5 fL (79-99); MONOCYTES % (AUTO) 2.9 % (3.0-13.0); NEUTROPHILS % (AUTO) 89.8 % (40.0-77.0); PLATELET COUNT (AUTO) 362 K/uL (130-400); RED BLOOD CELL COUNT(AUTO) 5.39 MIL/uL (4.50-6.20); RED CELL DISTRIBUTION WIDTH 11.9 % (11.0-15.5); WHITE BLOOD COUNT (AUTO) 17.3 K/uL (4.8-10.8)
[2020-02-17 06:34] LABS: CREATININE 0.9 mg/dL (0.5-1.5); POTASSIUM 3.7 mmol/L (3.5-5.1)
[2020-02-17 07:00] VITALS: BP 134/92
[2020-02-17] MEDS: ACETYLCYSTEINE 600 MG CAPSULE PO SCH ×2 (08:42→21:14)
[2020-02-17] MEDS: FAMOTIDINE 20MG TAB 20 MG TAB PO SCH ×2 (08:42→21:14)
[2020-02-17] MEDS: METHYLPREDNISOLONE SOD SUCC 40MG/ML 1ML IVP SCH ×3 (08:42→21:14)
[2020-02-17] MEDS: ZINC SULFATE 220 CAPSULE PO SCH (08:42)
[2020-02-17] MEDS: ASCORBIC ACID 500 MG TAB PO SCH (08:42)
[2020-02-17] MEDS: ENOXAPARIN SODIUM 60 MG/0.6 ML SQ SCH ×2 (08:46→21:13)
[2020-02-17 11:00] VITALS: BP 109/78
[2020-02-17 16:00] VITALS: BP 120/89
[2020-02-17 20:00] VITALS: BP 118/87
[2020-02-17] MEDS: MIRTAZAPINE 15 MG TABLET PO SCH (21:14)
--- NOTE | 2020-02-17 21:15 | NUR ---
MEDS AWAKENED PT FOR DUE MEDS. SHIFT ASSESSMENT DONE, PLEASE REFER TO CHART. PT MAINTAINED ON 100% NON-REBREATHER. DUE MEDS ADMINISTERED, TOLERATED WELL. KEPT RESTED AND COMFORTABLE IN BED WITH HOB ELEVATED. CALL LIGHT WITHIN REACH. WILL MONITOR PT. Addendum: 02/17/20 at 2317 by ALBERT CALDERON RN RN Amended: Links added.
[2020-02-17] MEDS: INSULIN GLARGINE 100 UNITS/ML 10 ML VIAL SQ SCH (21:17)
[2020-02-17 23:55] VITALS: BP 117/74
[2020-02-18] MEDS: ALBUTEROL INHALER 90MCG/INH IH SCH ×6 (02:03→22:10)
--- NOTE | 2020-02-18 02:03 | NUR ---
MEDS PT FAIRLY ASLEEP WITH 100% O2 SAT ON 100% NON-REBREATHER. NO RESPIRATORY DISTRESS NOTED. AWAKENED PT FOR DUE MEDS. ALBUTEROL PUFF GIVEN. ENCOURAGED TO GO BACK TO SLEEP. WILL MONITOR PT.
[2020-02-18 04:00] VITALS: BP 135/96
[2020-02-18] MEDS: FUROSEMIDE 10 MG/ML 2ML VIAL IV SCH ×3 (05:28→18:01)
[2020-02-18] MEDS: METHYLPREDNISOLONE SOD SUCC 40MG/ML 1ML IVP SCH ×3 (05:28→22:10)
--- NOTE | 2020-02-18 05:30 | NUR ---
MEDS AWAKENED PT FOR DUE MEDS, TOLERATED WELL. NO CONCERNS VERBALIZED. PT STILL ON 100% NON-REBREATHER WITH 100% O2 SAT. KEPT COMFORTABLE WITH HOB ELEVATED. FOR MORE CARE.
[2020-02-18] MEDS: INSULIN HUMULIN R 100 UNIT/ML 3ML SQ SCH ×7 (05:47→21:34)
[2020-02-18 08:30] VITALS: BP 125/89
[2020-02-18] MEDS: FAMOTIDINE 20MG TAB 20 MG TAB PO SCH ×2 (08:42→21:27)
[2020-02-18] MEDS: ZINC SULFATE 220 CAPSULE PO SCH (08:42)
[2020-02-18] MEDS: ACETYLCYSTEINE 600 MG CAPSULE PO SCH ×2 (08:42→21:27)
[2020-02-18] MEDS: ASCORBIC ACID 500 MG TAB PO SCH (08:43)
[2020-02-18] MEDS: FLUOXETINE HCL 10 MG CAPSULE PO SCH (08:43)
[2020-02-18] MEDS: ENOXAPARIN SODIUM 60 MG/0.6 ML SQ SCH ×2 (08:44→21:27)
[2020-02-18] MEDS: BENZONATATE 100 MG CAPSULE PO SCH ×3 (10:45→21:27)
[2020-02-18 12:29] VITALS: BP 133/77
[2020-02-18 16:48] VITALS: BP 129/98
--- NOTE | 2020-02-18 18:45 | NUR ---
note PATIENT HAD BEEN HAVING A GOOD DAY. BIPAP WAS WEINNED OFF TO 100% NRB YESTERDAY AND THIS AM WAS TURNED DOWN TO 70% BUT DID NOT TOLERATE AND WAS TURNED BACK UP TO 100%NRB. HE JUST HAD A COUGHING SPELL AND R.T. COACHED HIM THROUGH ON HIS BREATHING. HE IS RECEIVING CONVALESCENT PLASMA AT THIS TIME. SECOND UNIT WAS ORDERED PER PRIMARY DOCTOR EARLIER.
[2020-02-18 21:03] VITALS: BP 120/74
[2020-02-18] MEDS: MIRTAZAPINE 15 MG TABLET PO SCH (21:27)
[2020-02-18] MEDS: INSULIN GLARGINE 100 UNITS/ML 10 ML VIAL SQ SCH (21:32)
[2020-02-18 23:51] VITALS: BP 114/68
[2020-02-19] MEDS: FUROSEMIDE 10 MG/ML 2ML VIAL IV SCH ×4 (00:44→18:15)
[2020-02-19] MEDS: ALBUTEROL INHALER 90MCG/INH IH SCH ×6 (01:22→22:20)
[2020-02-19 04:58] VITALS: BP 120/81
[2020-02-19] MEDS: METHYLPREDNISOLONE SOD SUCC 40MG/ML 1ML IVP SCH ×3 (05:58→22:20)
[2020-02-19] MEDS: INSULIN HUMULIN R 100 UNIT/ML 3ML SQ SCH ×7 (06:09→21:00)
[2020-02-19 08:00] VITALS: BP 109/80
[2020-02-19] MEDS: ZINC SULFATE 220 CAPSULE PO SCH (09:32)
[2020-02-19] MEDS: FLUOXETINE HCL 10 MG CAPSULE PO SCH (09:32)
[2020-02-19] MEDS: ASCORBIC ACID 500 MG TAB PO SCH (09:32)
[2020-02-19] MEDS: ACETYLCYSTEINE 600 MG CAPSULE PO SCH ×2 (09:32→20:59)
[2020-02-19] MEDS: BENZONATATE 100 MG CAPSULE PO SCH ×3 (09:32→20:59)
[2020-02-19] MEDS: FAMOTIDINE 20MG TAB 20 MG TAB PO SCH ×2 (09:32→20:59)
[2020-02-19] MEDS: ENOXAPARIN SODIUM 60 MG/0.6 ML SQ SCH ×2 (09:33→21:01)
[2020-02-19 12:00] VITALS: BP 114/70
[2020-02-19 16:00] VITALS: BP 102/62
[2020-02-19 19:00] VITALS: BP 120/94
[2020-02-19] MEDS: MIRTAZAPINE 15 MG TABLET PO SCH (20:59)
[2020-02-19] MEDS: INSULIN GLARGINE 100 UNITS/ML 10 ML VIAL SQ SCH (21:01)
[2020-02-19 23:00] VITALS: BP 98/64
[2020-02-20] MEDS: FUROSEMIDE 10 MG/ML 2ML VIAL IV SCH ×4 (01:33→16:47)
[2020-02-20] MEDS: ALBUTEROL INHALER 90MCG/INH IH SCH ×6 (01:34→21:18)
[2020-02-20 03:00] VITALS: BP 114/82
[2020-02-20 04:03] LABS: BASOPHILS % (AUTO) 0.1 % (0.0-5.0); EOSINOPHILS % (AUTO) 0.1 % (0.0-8.0); HEMATOCRIT 44.3 % (42-54); LYMPHOCYTES % (AUTO) 5.1 % (21.0-51.0); MEAN CORPUSCULAR HEMOGLOBIN 27.8 pg (27.0-33.0); MEAN CORPUSCULAR HGB CONC 33.9 g/dL (32.0-36.0); MEAN CORPUSCULAR VOLUME 82.2 fL (79-99); MONOCYTES % (AUTO) 1.7 % (3.0-13.0); NEUTROPHILS % (AUTO) 91.8 % (40.0-77.0); PLATELET COUNT (AUTO) 347 K/uL (130-400); RED BLOOD CELL COUNT(AUTO) 5.39 MIL/uL (4.50-6.20); RED CELL DISTRIBUTION WIDTH 12.1 % (11.0-15.5); WHITE BLOOD COUNT (AUTO) 20.4 K/uL (4.8-10.8)
[2020-02-20 04:18] LABS: ALBUMIN 2.6 g/dL (3.5-5.0); BILIRUBIN,TOTAL 0.5 mg/dL (0.2-1.0); CREATININE 1.2 mg/dL (0.5-1.5); POTASSIUM 3.9 mmol/L (3.5-5.1); TOTAL PROTEIN, SERUM 7.3 g/dL (6.0-8.3)
[2020-02-20] MEDS: METHYLPREDNISOLONE SOD SUCC 40MG/ML 1ML IVP SCH ×3 (05:51→21:18)
[2020-02-20] MEDS: INSULIN HUMULIN R 100 UNIT/ML 3ML SQ SCH ×7 (06:31→21:17)
[2020-02-20 08:00] VITALS: BP 116/79
[2020-02-20] MEDS: FAMOTIDINE 20MG TAB 20 MG TAB PO SCH ×2 (09:23→21:16)
[2020-02-20] MEDS: ACETYLCYSTEINE 600 MG CAPSULE PO SCH ×2 (09:23→21:16)
[2020-02-20] MEDS: ASCORBIC ACID 500 MG TAB PO SCH (09:23)
[2020-02-20] MEDS: FLUOXETINE HCL 10 MG CAPSULE PO SCH (09:23)
[2020-02-20] MEDS: BENZONATATE 100 MG CAPSULE PO SCH ×3 (09:23→21:16)
[2020-02-20] MEDS: ZINC SULFATE 220 CAPSULE PO SCH (09:23)
[2020-02-20] MEDS: ENOXAPARIN SODIUM 60 MG/0.6 ML SQ SCH ×2 (09:24→21:18)
[2020-02-20 11:14] VITALS: BP 118/81
[2020-02-20 16:00] VITALS: BP 125/93
[2020-02-20 19:00] VITALS: BP 123/94
[2020-02-20] MEDS: MIRTAZAPINE 15 MG TABLET PO SCH (21:16)
[2020-02-20] MEDS: INSULIN GLARGINE 100 UNITS/ML 10 ML VIAL SQ SCH (21:17)
[2020-02-20 23:00] VITALS: BP 119/84
[2020-02-21] MEDS: FUROSEMIDE 10 MG/ML 2ML VIAL IV SCH ×5 (00:20→23:03)
[2020-02-21] MEDS: ALBUTEROL INHALER 90MCG/INH IH SCH ×6 (01:01→21:09)
[2020-02-21 03:00] VITALS: BP 128/84
[2020-02-21 06:19] LABS: BASOPHILS % (AUTO) 0.2 % (0.0-5.0); EOSINOPHILS % (AUTO) 0.4 % (0.0-8.0); HEMATOCRIT 43.9 % (42-54); LYMPHOCYTES % (AUTO) 7.2 % (21.0-51.0); MEAN CORPUSCULAR HGB CONC 33.9 g/dL (32.0-36.0); MEAN CORPUSCULAR VOLUME 82.5 fL (79-99); MONOCYTES % (AUTO) 3.1 % (3.0-13.0); NEUTROPHILS % (AUTO) 88.1 % (40.0-77.0); PLATELET COUNT (AUTO) 312 K/uL (130-400); RED BLOOD CELL COUNT(AUTO) 5.32 MIL/uL (4.50-6.20); RED CELL DISTRIBUTION WIDTH 12.1 % (11.0-15.5); WHITE BLOOD COUNT (AUTO) 18.2 K/uL (4.8-10.8)
[2020-02-21] MEDS: METHYLPREDNISOLONE SOD SUCC 40MG/ML 1ML IVP SCH (06:26)
[2020-02-21] MEDS: INSULIN HUMULIN R 100 UNIT/ML 3ML SQ SCH ×7 (06:27→21:08)
[2020-02-21 07:44] VITALS: BP 119/72
[2020-02-21] MEDS: ASCORBIC ACID 500 MG TAB PO SCH (08:55)
[2020-02-21] MEDS: ACETYLCYSTEINE 600 MG CAPSULE PO SCH (08:55)
[2020-02-21] MEDS: FLUOXETINE HCL 10 MG CAPSULE PO SCH (08:55)
[2020-02-21] MEDS: ZINC SULFATE 220 CAPSULE PO SCH (08:55)
[2020-02-21] MEDS: FAMOTIDINE 20MG TAB 20 MG TAB PO SCH ×2 (08:55→21:07)
[2020-02-21] MEDS: ENOXAPARIN SODIUM 60 MG/0.6 ML SQ SCH ×2 (08:56→21:09)
[2020-02-21] MEDS: BENZONATATE 100 MG CAPSULE PO SCH ×3 (08:56→21:07)
[2020-02-21 09:06] LABS: ALBUMIN 2.7 g/dL (3.5-5.0); BILIRUBIN,TOTAL 0.5 mg/dL (0.2-1.0); POTASSIUM 3.4 mmol/L (3.5-5.1); TOTAL PROTEIN, SERUM 7.2 g/dL (6.0-8.3)
[2020-02-21 11:24] VITALS: BP 119/74
[2020-02-21] MEDS ORDERED: POTASSIUM CHLORIDE 20 MEQ ERTAB PO ONE (12:17)
[2020-02-21] MEDS ORDERED: LIDOCAINE HCL-MPF 1% 2ML VIAL IV PRN ×2 (13:15)
[2020-02-21] MEDS ORDERED: POTASSIUM CHLORIDE 20MEQ/100ML 100 ML IV PRN ×2 (13:15)
[2020-02-21] MEDS ORDERED: POTASSIUM CHLORIDE 10% ELIXIR 20 MEQ/15 ML UDCUP PO PRN (13:15)
[2020-02-21] MEDS: POTASSIUM CHLORIDE 20 MEQ ERTAB PO PRN (15:22)
[2020-02-21 15:27] VITALS: BP 121/81
[2020-02-21 19:39] VITALS: BP 116/78
[2020-02-21] MEDS: MIRTAZAPINE 15 MG TABLET PO SCH (21:07)
[2020-02-21] MEDS: INSULIN GLARGINE 100 UNITS/ML 10 ML VIAL SQ SCH (21:08)
[2020-02-21 23:54] VITALS: BP 119/55
[2020-02-22] MEDS: ALBUTEROL INHALER 90MCG/INH IH SCH ×6 (01:34→22:04)
[2020-02-22 03:30] VITALS: BP 112/83
--- NOTE | 2020-02-22 06:00 | NUR ---
O2 Sat Pt on bedside commode, O2 sat at 77%, RR 30. Pt on venti mask at 40%. Pt stated "I'm okay" and did not want to change from venti mask. I allowed pt 10 minutes on bsc, then rechecked him with no improvement on saturation or respiratory rate. I instructed pt that he has to go back to NRB mask so that his sat will improve. Pt verbalized understanding and allowed me to place him on NRB mask at 15L. Pt assisted to bed, O2 sat 96%.
[2020-02-22] MEDS: INSULIN HUMULIN R 100 UNIT/ML 3ML SQ SCH ×7 (06:23→20:59)
[2020-02-22] MEDS: FUROSEMIDE 10 MG/ML 2ML VIAL IV SCH ×3 (06:23→19:45)
[2020-02-22 06:36] LABS: BASOPHILS % (AUTO) 0.4 % (0.0-5.0); EOSINOPHILS % (AUTO) 4.8 % (0.0-8.0); HEMATOCRIT 46.7 % (42-54); LYMPHOCYTES % (AUTO) 10.5 % (21.0-51.0); MEAN CORPUSCULAR HEMOGLOBIN 28.4 pg (27.0-33.0); MEAN CORPUSCULAR HGB CONC 34.9 g/dL (32.0-36.0); MEAN CORPUSCULAR VOLUME 81.5 fL (79-99); MONOCYTES % (AUTO) 5.1 % (3.0-13.0); NEUTROPHILS % (AUTO) 77.5 % (40.0-77.0); PLATELET COUNT (AUTO) 349 K/uL (130-400); RED BLOOD CELL COUNT(AUTO) 5.73 MIL/uL (4.50-6.20); WHITE BLOOD COUNT (AUTO) 24.8 K/uL (4.8-10.8)
--- NOTE | 2020-02-22 06:45 | NUR ---
Critical Lab Lactic Acid 3.4 Received call from laboratory regarding critical lactic acid of 3.4, paged hospitalist. Waiting for call back. Pt resting on bed comfortably, no distress noted at this time. Pt on NRB mask at 15L, sat 95%, RR 24.
[2020-02-22 07:00] VITALS: BP 119/86
[2020-02-22 07:03] LABS: ALBUMIN 2.8 g/dL (3.5-5.0); BILIRUBIN,TOTAL 0.5 mg/dL (0.2-1.0); CREATININE 1.3 mg/dL (0.5-1.5); MAGNESIUM 2.4 mg/dL (1.80-2.40); PHOSPHORUS 2.7 mg/dL (2.5-4.9); POTASSIUM 3.3 mmol/L (3.5-5.1); TOTAL PROTEIN, SERUM 7.6 g/dL (6.0-8.3)
[2020-02-22] MEDS: DEXAMETHASONE 4 MG TAB PO SCH (10:34)
[2020-02-22] MEDS: BENZONATATE 100 MG CAPSULE PO SCH ×3 (10:35→20:57)
[2020-02-22] MEDS: ASCORBIC ACID 500 MG TAB PO SCH (10:35)
[2020-02-22] MEDS: FLUOXETINE HCL 10 MG CAPSULE PO SCH (10:35)
[2020-02-22] MEDS: FAMOTIDINE 20MG TAB 20 MG TAB PO SCH ×2 (10:36→20:57)
[2020-02-22] MEDS: ZINC SULFATE 220 CAPSULE PO SCH (10:36)
[2020-02-22] MEDS: ENOXAPARIN SODIUM 60 MG/0.6 ML SQ SCH ×2 (10:37→20:57)
[2020-02-22 11:00] VITALS: BP 126/84
[2020-02-22] MEDS: POTASSIUM CHLORIDE 20 MEQ ERTAB PO PRN ×2 (14:08→17:30)
[2020-02-22 16:00] VITALS: BP 129/83
[2020-02-22 20:00] VITALS: BP 118/79
[2020-02-22] MEDS: MIRTAZAPINE 15 MG TABLET PO SCH (20:57)
[2020-02-22] MEDS: INSULIN GLARGINE 100 UNITS/ML 10 ML VIAL SQ SCH (20:58)
[2020-02-23] VITALS: BP 112/71
[2020-02-23] MEDS: FUROSEMIDE 10 MG/ML 2ML VIAL IV SCH ×3 (00:35→11:48)
[2020-02-23] MEDS: ALBUTEROL INHALER 90MCG/INH IH SCH ×6 (01:45→22:00)
[2020-02-23 03:47] VITALS: BP 117/85
[2020-02-23 04:22] LABS: BASOPHILS % (AUTO) 0.2 % (0.0-5.0); EOSINOPHILS % (AUTO) 0.3 % (0.0-8.0); HEMATOCRIT 43.3 % (42-54); LYMPHOCYTES % (AUTO) 9.8 % (21.0-51.0); MEAN CORPUSCULAR HEMOGLOBIN 28.2 pg (27.0-33.0); MEAN CORPUSCULAR HGB CONC 33.9 g/dL (32.0-36.0); MONOCYTES % (AUTO) 3.9 % (3.0-13.0); NEUTROPHILS % (AUTO) 84.4 % (40.0-77.0); PLATELET COUNT (AUTO) 274 K/uL (130-400); RED BLOOD CELL COUNT(AUTO) 5.22 MIL/uL (4.50-6.20); RED CELL DISTRIBUTION WIDTH 12.3 % (11.0-15.5); WHITE BLOOD COUNT (AUTO) 16.1 K/uL (4.8-10.8)
[2020-02-23 05:05] LABS: ALBUMIN 2.6 g/dL (3.5-5.0); BILIRUBIN,TOTAL 0.4 mg/dL (0.2-1.0); CREATININE 1.1 mg/dL (0.5-1.5); CRP QUANTITATIVE 31.6 mg/L (0.00-9.0); POTASSIUM 3.5 mmol/L (3.5-5.1); TOTAL PROTEIN, SERUM 7.2 g/dL (6.0-8.3)
[2020-02-23] MEDS: INSULIN HUMULIN R 100 UNIT/ML 3ML SQ SCH ×7 (06:06→20:49)
[2020-02-23 07:00] VITALS: BP 133/87
[2020-02-23] MEDS: BENZONATATE 100 MG CAPSULE PO SCH ×3 (08:02→20:43)
[2020-02-23] MEDS: DEXAMETHASONE 4 MG TAB PO SCH (08:03)
[2020-02-23] MEDS: FAMOTIDINE 20MG TAB 20 MG TAB PO SCH ×2 (08:03→20:40)
[2020-02-23] MEDS: FLUOXETINE HCL 10 MG CAPSULE PO SCH (08:03)
[2020-02-23] MEDS: ZINC SULFATE 220 CAPSULE PO SCH (08:05)
[2020-02-23] MEDS: ASCORBIC ACID 500 MG TAB PO SCH (08:05)
[2020-02-23] MEDS: ENOXAPARIN SODIUM 60 MG/0.6 ML SQ SCH (08:06)
[2020-02-23] MEDS ORDERED: GUAIFENESIN-CODEINE 5 ML SYRUP PO PRN (10:45)
[2020-02-23 11:00] VITALS: BP 124/84
[2020-02-23 16:00] VITALS: BP 149/93
[2020-02-23 20:00] VITALS: BP 112/82
[2020-02-23] MEDS: MIRTAZAPINE 15 MG TABLET PO SCH (20:40)
[2020-02-23] MEDS: METOPROLOL SUCCINATE 50 MG TAB.SR.24H PO SCH (20:48)
[2020-02-23] MEDS: INSULIN GLARGINE 100 UNITS/ML 10 ML VIAL SQ SCH (20:50)
[2020-02-24] VITALS: BP 120/76
[2020-02-24] MEDS: FUROSEMIDE 10 MG/ML 2ML VIAL IV SCH ×3 (00:12→11:57)
[2020-02-24] MEDS: ALBUTEROL INHALER 90MCG/INH IH SCH ×6 (02:07→22:07)
[2020-02-24 04:00] VITALS: BP_SYST 114; BP_SYST 119; BP_DIAS 60; BP_DIAS 83
[2020-02-24 05:15] LABS: BASOPHILS % (AUTO) 0.3 % (0.0-5.0); EOSINOPHILS % (AUTO) 5.3 % (0.0-8.0); HEMATOCRIT 44.5 % (42-54); LYMPHOCYTES % (AUTO) 14.7 % (21.0-51.0); MEAN CORPUSCULAR HEMOGLOBIN 28.2 pg (27.0-33.0); MEAN CORPUSCULAR HGB CONC 33.7 g/dL (32.0-36.0); MEAN CORPUSCULAR VOLUME 83.6 fL (79-99); MONOCYTES % (AUTO) 4.2 % (3.0-13.0); NEUTROPHILS % (AUTO) 74.2 % (40.0-77.0); PLATELET COUNT (AUTO) 286 K/uL (130-400); RED BLOOD CELL COUNT(AUTO) 5.32 MIL/uL (4.50-6.20); RED CELL DISTRIBUTION WIDTH 12.4 % (11.0-15.5); WHITE BLOOD COUNT (AUTO) 22.2 K/uL (4.8-10.8)
[2020-02-24 05:32] LABS: ALBUMIN 2.7 g/dL (3.5-5.0); BILIRUBIN,TOTAL 0.3 mg/dL (0.2-1.0); CREATININE 1.1 mg/dL (0.5-1.5); CRP QUANTITATIVE 13.8 mg/L (0.00-9.0); POTASSIUM 3.3 mmol/L (3.5-5.1); TOTAL PROTEIN, SERUM 7.3 g/dL (6.0-8.3)
[2020-02-24] MEDS: INSULIN HUMULIN R 100 UNIT/ML 3ML SQ SCH ×7 (05:51→22:06)
[2020-02-24 07:00] VITALS: BP 109/72
[2020-02-24] MEDS: DEXAMETHASONE 4 MG TAB PO SCH (08:25)
[2020-02-24] MEDS: METOPROLOL SUCCINATE 50 MG TAB.SR.24H PO SCH ×2 (08:25→20:24)
[2020-02-24] MEDS: ZINC SULFATE 220 CAPSULE PO SCH (08:26)
[2020-02-24] MEDS: FLUOXETINE HCL 10 MG CAPSULE PO SCH (08:26)
[2020-02-24] MEDS: FAMOTIDINE 20MG TAB 20 MG TAB PO SCH ×2 (08:26→20:24)
[2020-02-24] MEDS: ENOXAPARIN SODIUM 40 MG/0.4 ML SYRINGE SQ SCH (08:26)
[2020-02-24] MEDS: ASCORBIC ACID 500 MG TAB PO SCH (08:26)
[2020-02-24] MEDS: POTASSIUM CHLORIDE 20 MEQ ERTAB PO PRN ×2 (08:37→12:02)
[2020-02-24] MEDS: BENZONATATE 100 MG CAPSULE PO SCH ×3 (08:37→20:28)
[2020-02-24 11:00] VITALS: BP 116/76
[2020-02-24 16:00] VITALS: BP 103/62
[2020-02-24 20:00] VITALS: BP 114/60
[2020-02-24] MEDS: MIRTAZAPINE 15 MG TABLET PO SCH (20:24)
[2020-02-24] MEDS: INSULIN GLARGINE 100 UNITS/ML 10 ML VIAL SQ SCH (22:07)
[2020-02-25] VITALS: BP 119/73
[2020-02-25] MEDS: ALBUTEROL INHALER 90MCG/INH IH SCH ×6 (02:48→22:01)
[2020-02-25 04:00] VITALS: BP 118/69
[2020-02-25 04:50] LABS: BASOPHILS % (AUTO) 0.3 % (0.0-5.0); EOSINOPHILS % (AUTO) 3.3 % (0.0-8.0); HEMATOCRIT 43.7 % (42-54); LYMPHOCYTES % (AUTO) 14.5 % (21.0-51.0); MEAN CORPUSCULAR HEMOGLOBIN 28.1 pg (27.0-33.0); MEAN CORPUSCULAR HGB CONC 33.4 g/dL (32.0-36.0); MEAN CORPUSCULAR VOLUME 84.2 fL (79-99); MONOCYTES % (AUTO) 4.3 % (3.0-13.0); NEUTROPHILS % (AUTO) 75.9 % (40.0-77.0); PLATELET COUNT (AUTO) 252 K/uL (130-400); RED BLOOD CELL COUNT(AUTO) 5.19 MIL/uL (4.50-6.20); RED CELL DISTRIBUTION WIDTH 12.4 % (11.0-15.5); WHITE BLOOD COUNT (AUTO) 17.7 K/uL (4.8-10.8)
[2020-02-25 05:41] LABS: ALBUMIN 2.8 g/dL (3.5-5.0); BILIRUBIN,TOTAL 0.4 mg/dL (0.2-1.0); CREATININE 1.1 mg/dL (0.5-1.5); CRP QUANTITATIVE 12.3 mg/L (0.00-9.0); TOTAL PROTEIN, SERUM 7.5 g/dL (6.0-8.3)
[2020-02-25] MEDS: INSULIN HUMULIN R 100 UNIT/ML 3ML SQ SCH ×7 (06:04→20:50)
[2020-02-25 07:53] VITALS: BP 127/87
[2020-02-25] MEDS: FAMOTIDINE 20MG TAB 20 MG TAB PO SCH ×2 (08:36→20:47)
[2020-02-25] MEDS: ZINC SULFATE 220 CAPSULE PO SCH (08:36)
[2020-02-25] MEDS: FLUOXETINE HCL 10 MG CAPSULE PO SCH (08:36)
[2020-02-25] MEDS: BENZONATATE 100 MG CAPSULE PO SCH ×3 (08:36→20:46)
[2020-02-25] MEDS: ASCORBIC ACID 500 MG TAB PO SCH (08:36)
[2020-02-25] MEDS: DEXAMETHASONE 4 MG TAB PO SCH (08:37)
[2020-02-25] MEDS: ENOXAPARIN SODIUM 40 MG/0.4 ML SYRINGE SQ SCH (08:41)
[2020-02-25] MEDS: METOPROLOL SUCCINATE 50 MG TAB.SR.24H PO SCH ×2 (08:41→20:46)
--- NOTE | 2020-02-25 08:50 | NUR ---
LYING IN BED AAOx4. ABLE TO MAKE NEEDS KNOWN. DENIED ANY PAIN/DISCOMFORT AT THIS TIME. RESPIRATIONS EVEN AND UNLABORED AT REST. O2 SAT 100 ON 15L 40% VENTI-MASK, DECREASED TO 12.5L, O2 SAT 96%. DIABETIC TEACHING REINFORCED WITH PATIENT, VERBALIZED UNDERSTANDING, HANDOUT GIVEN. WILL CONTINUE TO MONITOR. SAFETY PRECAUTIONS IN PLACE.
[2020-02-25 11:33] VITALS: BP 117/78
--- NOTE | 2020-02-25 11:34 | NUR ---
RD FOLLOW UP RD notification for RD-assisted nutrition education. RD faxed Diabetes Nutrition Education to [phone] [phone] - 4 pages. RN notified. Pt tolerating 75gm CC diet order with no report of GI distress. Fair PO intake at 50-100%. WBC 17.7, Cl 99, BUN 39, Alb 2.8. Zinc and vitamin C supplementation in place. Recommend add 60ml ProMod QD RD to continue to monitor. Please notify RD as additional nutrition concerns arise. Thank you.
--- NOTE | 2020-02-25 16:00 | NUR ---
VISITED W PT IN ROOM RE DC PLAN TO [facility] VISITED W PT IN ROOM , ALERT, BRIGHT EYES, AND STATES FEELING MUCH MORE CHEERFUL, HOPEFUL. DISCUSSED DC PLAN- HAS HEARD OF [facility], IS WILLING TO GO TO COMPLETE TREATMENT THERE WHENEVER HE MEET CRITERIA, ADIVSED DR. Musa, ORDER PLACED Addendum: 02/25/20 at 1931 by ALEKSEY HENRIQUEZ RN CM Amended: Links added.
--- NOTE | 2020-02-25 16:27 | NUR ---
PT'S BLOOD GLUCOSE 380. DR. JUÁREZ NOTIFIED WITH VERBAL INSTRUCTIONS RECEIVED TO GIVE 5 ADDITIONAL UNITS OF REGULAR INSULIN WITH SCHEDULE REGULAR INSULIN OF 7 UNITS AND SSI, REPEATED BACK. WILL VERBALLY REINFORCE DIABETIC DIET COMPLIANCE WITH PATIENT TO MAINTAIN STABLE BLOOD GLUCOSES.
[2020-02-25 16:54] VITALS: BP 128/75
[2020-02-25 20:00] VITALS: BP 120/71
[2020-02-25] MEDS: MIRTAZAPINE 15 MG TABLET PO SCH (20:47)
[2020-02-25] MEDS: INSULIN GLARGINE 100 UNITS/ML 10 ML VIAL SQ SCH (20:49)
[2020-02-26] VITALS (7 sets, daily range): BP systolic 105–130; BP diastolic 56–77
[2020-02-26] MEDS: ALBUTEROL INHALER 90MCG/INH IH SCH ×6 (02:02→22:48)
[2020-02-26 05:13] LABS: BASOPHILS % (AUTO) 0.2 % (0.0-5.0); EOSINOPHILS % (AUTO) 1.1 % (0.0-8.0); HEMATOCRIT 39.5 % (42-54); LYMPHOCYTES % (AUTO) 15.7 % (21.0-51.0); MEAN CORPUSCULAR HEMOGLOBIN 27.7 pg (27.0-33.0); MEAN CORPUSCULAR HGB CONC 33.4 g/dL (32.0-36.0); MEAN CORPUSCULAR VOLUME 82.8 fL (79-99); MONOCYTES % (AUTO) 4.2 % (3.0-13.0); NEUTROPHILS % (AUTO) 77.1 % (40.0-77.0); PLATELET COUNT (AUTO) 211 K/uL (130-400); RED BLOOD CELL COUNT(AUTO) 4.77 MIL/uL (4.50-6.20); RED CELL DISTRIBUTION WIDTH 12.3 % (11.0-15.5); WHITE BLOOD COUNT (AUTO) 15.1 K/uL (4.8-10.8)
[2020-02-26 05:39] LABS: ALBUMIN 2.5 g/dL (3.5-5.0); BILIRUBIN,TOTAL 0.4 mg/dL (0.2-1.0); CREATININE 0.9 mg/dL (0.5-1.5); CRP QUANTITATIVE 6.2 mg/L (0.00-9.0); POTASSIUM 3.9 mmol/L (3.5-5.1); TOTAL PROTEIN, SERUM 6.6 g/dL (6.0-8.3)
[2020-02-26] MEDS: INSULIN HUMULIN R 100 UNIT/ML 3ML SQ SCH ×7 (06:39→20:15)
[2020-02-26] MEDS: FLUOXETINE HCL 10 MG CAPSULE PO SCH (07:56)
[2020-02-26] MEDS: FAMOTIDINE 20MG TAB 20 MG TAB PO SCH ×2 (07:56→20:16)
[2020-02-26] MEDS: ZINC SULFATE 220 CAPSULE PO SCH (07:56)
[2020-02-26] MEDS: ASCORBIC ACID 500 MG TAB PO SCH (07:56)
[2020-02-26] MEDS: METOPROLOL SUCCINATE 50 MG TAB.SR.24H PO SCH ×2 (07:56→20:16)
[2020-02-26] MEDS: ENOXAPARIN SODIUM 40 MG/0.4 ML SYRINGE SQ SCH (07:57)
[2020-02-26] MEDS: DEXAMETHASONE 4 MG TAB PO SCH (07:57)
[2020-02-26] MEDS: BENZONATATE 100 MG CAPSULE PO SCH ×3 (07:58→20:16)
[2020-02-26] MEDS: INSULIN GLARGINE 100 UNITS/ML 10 ML VIAL SQ SCH (20:13)
[2020-02-26] MEDS: MIRTAZAPINE 15 MG TABLET PO SCH (20:16)
[2020-02-27] MEDS: ALBUTEROL INHALER 90MCG/INH IH SCH ×6 (02:25→22:00)
[2020-02-27 04:00] VITALS: BP 105/73
[2020-02-27 05:09] LABS: BASOPHILS % (AUTO) 0.3 % (0.0-5.0); EOSINOPHILS % (AUTO) 5.3 % (0.0-8.0); HEMATOCRIT 37.6 % (42-54); LYMPHOCYTES % (AUTO) 24.1 % (21.0-51.0); MEAN CORPUSCULAR HEMOGLOBIN 27.9 pg (27.0-33.0); MEAN CORPUSCULAR HGB CONC 33.5 g/dL (32.0-36.0); MEAN CORPUSCULAR VOLUME 83.2 fL (79-99); NEUTROPHILS % (AUTO) 64.6 % (40.0-77.0); PLATELET COUNT (AUTO) 170 K/uL (130-400); RED BLOOD CELL COUNT(AUTO) 4.52 MIL/uL (4.50-6.20); RED CELL DISTRIBUTION WIDTH 12.5 % (11.0-15.5); WHITE BLOOD COUNT (AUTO) 14.6 K/uL (4.8-10.8)
[2020-02-27 05:32] LABS: ALANINE AMINOTRANSFERASE 74 U/L (12-78); ALBUMIN 2.4 g/dL (3.5-5.0); ASPARTATE AMINOTRANSFERASE 22 U/L (10-37); BILIRUBIN,TOTAL 0.3 mg/dL (0.2-1.0); CARBON DIOXIDE 32 mmol/L (21-32); CHLORIDE 102 mmol/L (101-111); GLOMERULAR FILTR. RATE CALC 88 mL/min (>60); GLUCOSE,RANDOM 155 mg/dL (70-105); LACTATE DEHYDROGENASE 210 U/L (81-234); POTASSIUM 3.5 mmol/L (3.5-5.1); SODIUM SERUM 137 mmol/L (136-145); TOTAL PROTEIN, SERUM 6.1 g/dL (6.0-8.3); UREA NITROGEN, BLOOD 28 mg/dL (7-18)
[2020-02-27] MEDS: INSULIN HUMULIN R 100 UNIT/ML 3ML SQ SCH ×7 (06:08→20:23)
[2020-02-27] MEDS: FAMOTIDINE 20MG TAB 20 MG TAB PO SCH ×2 (08:30→20:20)
[2020-02-27] MEDS: FLUOXETINE HCL 10 MG CAPSULE PO SCH (08:30)
[2020-02-27] MEDS: DEXAMETHASONE 4 MG TAB PO SCH (08:31)
[2020-02-27] MEDS: ZINC SULFATE 220 CAPSULE PO SCH (08:31)
[2020-02-27] MEDS: ASCORBIC ACID 500 MG TAB PO SCH (08:31)
[2020-02-27] MEDS: METOPROLOL SUCCINATE 50 MG TAB.SR.24H PO SCH ×2 (08:32→20:20)
[2020-02-27] MEDS: ENOXAPARIN SODIUM 40 MG/0.4 ML SYRINGE SQ SCH (08:32)
[2020-02-27] MEDS: BENZONATATE 100 MG CAPSULE PO SCH ×3 (08:32→20:20)
[2020-02-27 08:37] VITALS: BP 116/71
[2020-02-27 12:13] VITALS: BP 120/84
[2020-02-27 16:50] VITALS: BP 113/76
[2020-02-27] MEDS: MIRTAZAPINE 15 MG TABLET PO SCH (20:20)
[2020-02-27] MEDS: INSULIN GLARGINE 100 UNITS/ML 10 ML VIAL SQ SCH (20:25)
[2020-02-27 20:26] VITALS: BP 107/68
[2020-02-27 23:38] VITALS: BP 113/68
[2020-02-28] MEDS: ALBUTEROL INHALER 90MCG/INH IH SCH ×6 (01:42→22:41)
[2020-02-28 04:00] VITALS: BP 115/66
[2020-02-28 04:40] LABS: ALANINE AMINOTRANSFERASE 103 U/L (12-78); ALBUMIN 2.2 g/dL (3.5-5.0); ASPARTATE AMINOTRANSFERASE 31 U/L (10-37); BILIRUBIN,TOTAL 0.3 mg/dL (0.2-1.0); CARBON DIOXIDE 29 mmol/L (21-32); CHLORIDE 102 mmol/L (101-111); GLOMERULAR FILTR. RATE CALC 88 mL/min (>60); GLUCOSE,RANDOM 249 mg/dL (70-105); LACTATE DEHYDROGENASE 212 U/L (81-234); POTASSIUM 3.6 mmol/L (3.5-5.1); SODIUM SERUM 138 mmol/L (136-145); TOTAL PROTEIN, SERUM 6.1 g/dL (6.0-8.3); UREA NITROGEN, BLOOD 26 mg/dL (7-18)
[2020-02-28] MEDS: INSULIN HUMULIN R 100 UNIT/ML 3ML SQ SCH ×7 (06:29→20:26)
[2020-02-28 08:19] VITALS: BP 107/79
[2020-02-28] MEDS: FAMOTIDINE 20MG TAB 20 MG TAB PO SCH ×2 (08:48→20:26)
[2020-02-28] MEDS: DEXAMETHASONE 4 MG TAB PO SCH (08:48)
[2020-02-28] MEDS: ZINC SULFATE 220 CAPSULE PO SCH (08:49)
[2020-02-28] MEDS: METOPROLOL SUCCINATE 50 MG TAB.SR.24H PO SCH ×2 (08:50→20:26)
[2020-02-28] MEDS: FLUOXETINE HCL 10 MG CAPSULE PO SCH (08:50)
[2020-02-28] MEDS: ASCORBIC ACID 500 MG TAB PO SCH (08:51)
[2020-02-28] MEDS: ENOXAPARIN SODIUM 40 MG/0.4 ML SYRINGE SQ SCH (08:52)
[2020-02-28] MEDS: BENZONATATE 100 MG CAPSULE PO SCH ×3 (08:53→20:26)
[2020-02-28 11:19] VITALS: BP 113/77
[2020-02-28] MEDS: LACTULOSE 20 GM/30 ML UDCUP PO SCH (15:02)
--- NOTE | 2020-02-28 16:01 | NUR ---
cm note discussed case with Jazmín Ortez NP, and pt remains on 4l nc. continous, anticipate poss dc home. also discussed with LEONIDES Sotomayor. informs that this pt may be better for [facility] site. CM to followup with [facility] facility tomorrow if accepting pts.
[2020-02-28 16:40] VITALS: BP 119/78
[2020-02-28 19:30] VITALS: BP 127/73
[2020-02-28] MEDS: DOCUSATE SODIUM 100 MG CAP PO SCH (20:25)
[2020-02-28] MEDS: MIRTAZAPINE 15 MG TABLET PO SCH (20:26)
[2020-02-28] MEDS: INSULIN GLARGINE 100 UNITS/ML 10 ML VIAL SQ SCH (20:26)
--- NOTE | 2020-02-28 21:50 | NUR ---
PIV Removal Pt IV to right wrist came out. Pt declined to have another PIV inserted. Pt informed that PIV is used for treatment and necessary for intravenous medications and solutions, pt verbalized understanding. Pt not receiving any IV fluids or medications at this time. Pt signed refual for tx form, however stated that if he has to have IV fluids or medications he will consent to PIV placement.
[2020-02-28 23:34] VITALS: BP 113/75
[2020-02-29] MEDS: ALBUTEROL INHALER 90MCG/INH IH SCH ×6 (02:00→21:40)
[2020-02-29 03:58] VITALS: BP 108/71
[2020-02-29] MEDS: INSULIN HUMULIN R 100 UNIT/ML 3ML SQ SCH ×7 (05:51→20:24)
[2020-02-29 06:07] LABS: BASOPHILS % (AUTO) 0.3 % (0.0-5.0); EOSINOPHILS % (AUTO) 0.6 % (0.0-8.0); HEMATOCRIT 36.3 % (42-54); LYMPHOCYTES % (AUTO) 21.4 % (21.0-51.0); MEAN CORPUSCULAR HEMOGLOBIN 28.4 pg (27.0-33.0); MEAN CORPUSCULAR HGB CONC 33.3 g/dL (32.0-36.0); MEAN CORPUSCULAR VOLUME 85.2 fL (79-99); MONOCYTES % (AUTO) 5.1 % (3.0-13.0); NEUTROPHILS % (AUTO) 70.2 % (40.0-77.0); PLATELET COUNT (AUTO) 162 K/uL (130-400); RED BLOOD CELL COUNT(AUTO) 4.26 MIL/uL (4.50-6.20); RED CELL DISTRIBUTION WIDTH 12.8 % (11.0-15.5); WHITE BLOOD COUNT (AUTO) 12.9 K/uL (4.8-10.8)
[2020-02-29 06:34] LABS: ALANINE AMINOTRANSFERASE 127 U/L (12-78); ALBUMIN 2.2 g/dL (3.5-5.0); ASPARTATE AMINOTRANSFERASE 27 U/L (10-37); BILIRUBIN,TOTAL 0.2 mg/dL (0.2-1.0); CARBON DIOXIDE 30 mmol/L (21-32); CHLORIDE 107 mmol/L (101-111); CREATININE 0.9 mg/dL (0.5-1.5); GLOMERULAR FILTR. RATE CALC 99 mL/min (>60); GLUCOSE,RANDOM 110 mg/dL (70-105); LACTATE DEHYDROGENASE 210 U/L (81-234); POTASSIUM 3.8 mmol/L (3.5-5.1); SODIUM SERUM 141 mmol/L (136-145); TOTAL PROTEIN, SERUM 5.8 g/dL (6.0-8.3); UREA NITROGEN, BLOOD 20 mg/dL (7-18)
[2020-02-29 08:00] VITALS: BP 112/63
[2020-02-29] MEDS: DOCUSATE SODIUM 100 MG CAP PO SCH ×2 (09:39→20:22)
[2020-02-29] MEDS: DEXAMETHASONE 4 MG TAB PO SCH (09:40)
[2020-02-29] MEDS: FLUOXETINE HCL 10 MG CAPSULE PO SCH (09:40)
[2020-02-29] MEDS: BENZONATATE 100 MG CAPSULE PO SCH ×3 (09:41→20:22)
[2020-02-29] MEDS: ZINC SULFATE 220 CAPSULE PO SCH (09:41)
[2020-02-29] MEDS: METOPROLOL SUCCINATE 50 MG TAB.SR.24H PO SCH ×2 (09:41→20:22)
[2020-02-29] MEDS: ASCORBIC ACID 500 MG TAB PO SCH (09:41)
[2020-02-29] MEDS: FAMOTIDINE 20MG TAB 20 MG TAB PO SCH ×2 (09:41→20:22)
[2020-02-29] MEDS: ENOXAPARIN SODIUM 40 MG/0.4 ML SYRINGE SQ SCH (09:42)
[2020-02-29 12:00] VITALS: BP 113/53
[2020-02-29] MEDS: LACTULOSE 20 GM/30 ML UDCUP PO SCH (13:26)
[2020-02-29 16:00] VITALS: BP 133/71
[2020-02-29] MEDS: MIRTAZAPINE 15 MG TABLET PO SCH (20:22)
[2020-02-29] MEDS: INSULIN GLARGINE 100 UNITS/ML 10 ML VIAL SQ SCH (20:23)
[2020-02-29 20:25] VITALS: BP 106/60
[2020-03-01 00:30] VITALS: BP 125/62
[2020-03-01] MEDS: ALBUTEROL INHALER 90MCG/INH IH SCH ×6 (02:03→21:52)
[2020-03-01 05:44] LABS: HEMATOCRIT 31.8 % (42-54); MEAN CORPUSCULAR HEMOGLOBIN 28.4 pg (27.0-33.0); MEAN CORPUSCULAR HGB CONC 33.3 g/dL (32.0-36.0); MEAN CORPUSCULAR VOLUME 85.3 fL (79-99); NUCLEATED RED BLOOD CELLS 0.2 % (0.0-0.19); RED BLOOD CELL COUNT(AUTO) 3.73 MIL/uL (4.50-6.20); RED CELL DISTRIBUTION WIDTH 13.2 % (11.0-15.5); WHITE BLOOD COUNT (AUTO) 11.6 K/uL (4.8-10.8)
[2020-03-01 05:50] VITALS: BP 104/68
[2020-03-01] MEDS: INSULIN HUMULIN R 100 UNIT/ML 3ML SQ SCH ×7 (06:01→21:02)
[2020-03-01] MEDS: FLUOXETINE HCL 10 MG CAPSULE PO SCH (08:15)
[2020-03-01] MEDS: DOCUSATE SODIUM 100 MG CAP PO SCH ×2 (08:16→21:01)
[2020-03-01] MEDS: ASCORBIC ACID 500 MG TAB PO SCH (08:16)
[2020-03-01] MEDS: FAMOTIDINE 20MG TAB 20 MG TAB PO SCH ×2 (08:16→21:00)
[2020-03-01] MEDS: ZINC SULFATE 220 CAPSULE PO SCH (08:16)
[2020-03-01] MEDS: DEXAMETHASONE 4 MG TAB PO SCH (08:17)
[2020-03-01] MEDS: METOPROLOL SUCCINATE 50 MG TAB.SR.24H PO SCH ×2 (08:17→21:01)
[2020-03-01] MEDS: ENOXAPARIN SODIUM 40 MG/0.4 ML SYRINGE SQ SCH (08:18)
[2020-03-01] MEDS: BENZONATATE 100 MG CAPSULE PO SCH ×3 (08:20→21:04)
[2020-03-01 08:30] VITALS: BP 108/52
[2020-03-01 12:30] VITALS: BP 121/64
[2020-03-01] MEDS: LACTULOSE 20 GM/30 ML UDCUP PO SCH (12:55)
--- NOTE | 2020-03-01 13:53 | NUR ---
CM NOTE/ [facility] O2 CONCENTRATOR AND TANK PATIENT DOES NOT HAVE INSURANCE. PATIENT TO BE [facility] OXYGEN CONCENTRATOR AND PORTABLE OXYGEN TANK FOR HOME TRANSPORT IF READY TO DC HOME. PER MAJ. DEMETRICE YOO, DR. SALAZAR TO ROUND AND DECIDE IF OK FOR DC HOME. SEU IBARRA, INSTRUCTED ON 02 CONCENTRATOR AND PORTABLE TANK, VERBALIZED UNDERSTANDING TO INSTRUCT PATIENT ON EQUIPMENT WELL TO TELL PATIENT/FAMILY TO RETURN PORTABLE OXYGEN TANK WHEN PATIENT GETS DROPPED OFF AT HOME.
[2020-03-01 16:30] VITALS: BP 112/78
[2020-03-01 20:10] VITALS: BP 120/70
[2020-03-01] MEDS: MIRTAZAPINE 15 MG TABLET PO SCH (21:00)
[2020-03-01] MEDS: INSULIN GLARGINE 100 UNITS/ML 10 ML VIAL SQ SCH (21:03)
[2020-03-02 00:25] VITALS: BP 114/64
[2020-03-02] MEDS: ALBUTEROL INHALER 90MCG/INH IH SCH ×4 (01:34→14:00)
[2020-03-02 04:40] VITALS: BP 112/60
[2020-03-02] MEDS: INSULIN HUMULIN R 100 UNIT/ML 3ML SQ SCH ×4 (06:32→11:42)
[2020-03-02 08:37] LABS: BASOPHILS % (AUTO) 0.3 % (0.0-5.0); EOSINOPHILS % (AUTO) 2.3 % (0.0-8.0); HEMATOCRIT 34.8 % (42-54); LYMPHOCYTES % (AUTO) 33.5 % (21.0-51.0); MEAN CORPUSCULAR HEMOGLOBIN 28.4 pg (27.0-33.0); MEAN CORPUSCULAR HGB CONC 32.5 g/dL (32.0-36.0); MEAN CORPUSCULAR VOLUME 87.4 fL (79-99); MONOCYTES % (AUTO) 5.1 % (3.0-13.0); NEUTROPHILS % (AUTO) 55.1 % (40.0-77.0); PLATELET COUNT (AUTO) 171 K/uL (130-400); RED BLOOD CELL COUNT(AUTO) 3.98 MIL/uL (4.50-6.20); RED CELL DISTRIBUTION WIDTH 13.6 % (11.0-15.5); WHITE BLOOD COUNT (AUTO) 10.2 K/uL (4.8-10.8)
[2020-03-02 08:55] VITALS: BP 127/71
[2020-03-02 08:56] LABS: ALBUMIN 2.2 g/dL (3.5-5.0); BILIRUBIN,TOTAL 0.2 mg/dL (0.2-1.0); CREATININE 1.1 mg/dL (0.5-1.5); POTASSIUM 3.8 mmol/L (3.5-5.1); TOTAL PROTEIN, SERUM 5.6 g/dL (6.0-8.3)
[2020-03-02] MEDS ORDERED: DEXA6TAB PO (09:26)
[2020-03-02] MEDS ORDERED: APIX2.5T PO (09:26)
[2020-03-02] MEDS ORDERED: FAMO20TA8 PO (09:27)
[2020-03-02] MEDS: ZINC SULFATE 220 CAPSULE PO SCH (09:50)
[2020-03-02] MEDS: FLUOXETINE HCL 10 MG CAPSULE PO SCH (09:50)
[2020-03-02] MEDS: FAMOTIDINE 20MG TAB 20 MG TAB PO SCH (09:50)
[2020-03-02] MEDS: DOCUSATE SODIUM 100 MG CAP PO SCH (09:51)
[2020-03-02] MEDS: BENZONATATE 100 MG CAPSULE PO SCH ×2 (09:51→14:00)
[2020-03-02] MEDS: ASCORBIC ACID 500 MG TAB PO SCH (09:51)
[2020-03-02] MEDS: METOPROLOL SUCCINATE 50 MG TAB.SR.24H PO SCH (09:53)
[2020-03-02] MEDS: DEXAMETHASONE 4 MG TAB PO SCH (09:55)
[2020-03-02] MEDS: ENOXAPARIN SODIUM 40 MG/0.4 ML SYRINGE SQ SCH (09:55)
[2020-03-02] MEDS: LACTULOSE 20 GM/30 ML UDCUP PO SCH (11:43)
[2020-03-02 11:48] VITALS: BP 129/82
--- NOTE | 2020-03-02 14:06 | NUR ---
Pt discharged instruction explained and given to pt , pt also signed hospital property form and instructed to bring back o2 tank. pt A&Ox3. no complaints offered. Pt wheelchair to front of hospital for berry picker.
== END 2020-03-02 15:00 | disposition home or self-care (01) | DRG 177 ==
LOC: EDH 19:18 → EDHIP 19:19 → 3AH 02-08 23:47 → 4BH 02-11 17:07 → 4AH 02-13 22:38
PROVIDERS: ADMIT Internal Medicine; ATTEND Internal Medicine
PROC: 5A09457 Assistance with Respiratory Ventilation, 24-96 Consecutive Hours, Continuous Positive Airway Pressure (ICD-10-PCS; 2020-02-11)
PROC: XW033E5 Introduction of Remdesivir Anti-infective into Peripheral Vein, Percutaneous Approach, New Technology Group 5 (ICD-10-PCS; principal; 2020-02-12)
PROC: XW13325 Transfusion of Convalescent Plasma (Nonautologous) into Peripheral Vein, Percutaneous Approach, New Technology Group 5 (ICD-10-PCS; 2020-02-12)
PROC: 5A09357 Assistance with Respiratory Ventilation, Less than 24 Consecutive Hours, Continuous Positive Airway Pressure (ICD-10-PCS; 2020-02-16)
PROC: 5A09357 Assistance with Respiratory Ventilation, Less than 24 Consecutive Hours, Continuous Positive Airway Pressure (ICD-10-PCS; 2020-02-17)
DX: U07.1 COVID-19 (principal); J12.89 Other viral pneumonia; J96.01 Acute respiratory failure with hypoxia; F32.1 Major depressive disorder, single episode, moderate; Z68.38 Body mass index [BMI] 38.0-38.9, adult; E66.9 Obesity, unspecified; E11.65 Type 2 diabetes mellitus with hyperglycemia; E66.01 Morbid (severe) obesity due to excess calories; E78.5 Hyperlipidemia, unspecified; E83.42 Hypomagnesemia; F41.1 Generalized anxiety disorder; I10 Essential (primary) hypertension; Z79.899 Other long term (current) drug therapy; Z90.49 Acquired absence of other specified parts of digestive tract; D72.829 Elevated white blood cell count, unspecified; Z53.20 Procedure and treatment not carried out because of patient's decision for unspecified reasons
CPT/HCPCS: 36415; 36430; 36600; 71045; 80048; 80053; 82435; 82550; 82728; 82803; 82947; 82948; 83036; 83605; 83615; 83735; 83874; 83880; 84100; 84132; 84145; 84295; 84484; 85018; 85025; 85027; 85378; 85610; 86140; 86850; 86900; 86901; 86927; 87040; 87486; 87581; 87633; 87798; 93005; 94660; 94667; 94668; 94760; G0378; J0456; J0696; J1650; J1815; J1940; J2405; J2920; J3475; J3490; J7050; J8540; Q9967; U0003

== ENCOUNTER → 2023-05-14 | Outpatient (CLI) | payer BC ==
[~2023-05-14] MED LIST: APIX2.5T PO; DEXA6TAB PO; FAMO20TA8 PO
== END | disposition home or self-care (01) ==
LOC: RAH 08:39
PROVIDERS: ATTEND Internal Medicine Cardiovascular Disease
DX: I20.9 Angina pectoris, unspecified (principal); I10 Essential (primary) hypertension
CPT/HCPCS: 78452; 96374; 93017; A9500 ×2